=== PATIENT | male | born 1955 | race Caucasian/White ===

== ENCOUNTER 2020-07-15 05:43 | Inpatient (IN) | payer BC, OTHER ==
[~2020-07-15] VITALS: Ht 172.7 cm; Wt 69.9 kg
[2020-07-15] VITALS (40 sets, daily range): BP systolic 45–118; BP diastolic 24–80
--- NOTE | 2020-07-15 05:45 | NUR ---
PT AAOX4. BIBRA C/O GEN ABD PAIN FOR THE PAST 12 HRS. PT STATED HE DID VOMIT X1 TIME. PT PALCED IN BED 7 ON CRIME SCENE SPECIALIST AND PULSE OX. PT TRACH DEP ON 2L. PT HAS A G TUBE AND A GABRIEL. HX OF CHRONIC HYPOTENSION. BP WAS 84/41. MD AT BEDSIDE FOR EVAL.
--- NOTE | 2020-07-15 06:05 | NUR ---
LINE INITIATED LAC 20G, BLOOD WORK COLLECTED, SENT TO LAB.
[2020-07-15] MEDS ORDERED: ONDANSETRON HCL/PF 4 MG/2 ML VIAL ONE (06:08)
--- NOTE | 2020-07-15 06:10 | NUR ---
PT PLACED ON L SIDE DUE TO LOWER BACK PAIN.
[2020-07-15 06:23] LABS: BASOPHILS # (AUTO) 0.2 /CMM (0.0-0.2); BASOPHILS % (AUTO) 0.8 % (0.0-2.0); EOSINOPHILS % (AUTO) 0.5 % (0.0-6.0); HEMATOCRIT 28 % (39-51); HEMOGLOBIN 8.7 g/dL (13.5-17.5); LYMPHOCYTES # (AUTO) 1.2 /CMM (0.8-4.8); LYMPHOCYTES % (AUTO) 6.1 % (20.0-44.0); MEAN CORPUSCULAR HGB CONC 31 g/dl (31.0-36.0); MEAN CORPUSCULAR VOLUME 82 fL (80-96); MONOCYTES # (AUTO) 0.6 /CMM (0.1-1.30); MONOCYTES % (AUTO) 3.2 % (2.0-12.0); NEUTROPHILS # (AUTO) 17.8 /CMM (1.8-8.9); NEUTROPHILS % (AUTO) 89.4 % (43.0-81.0); PLATELET COUNT (AUTO) 440 /CMM (150-450); RED BLOOD CELL COUNT(AUTO) 3.37 MIL/uL (4.5-6.0)
[2020-07-15] MEDS ORDERED: MORPHINE SULFATE INJ 2 MG/ML DISP.SYRIN IV ONE (06:30)
[2020-07-15] MEDS ORDERED: IV NS 0.9% 500 ML BAG IV ONE (06:30)
[2020-07-15] MEDS ORDERED: ONDANSETRON HCL/PF 4 MG/2 ML VIAL IVP ONE (06:30)
--- NOTE | 2020-07-15 06:38 | NUR ---
BROUGHT TO CT
--- NOTE | 2020-07-15 06:56 | NUR ---
pt returned from radiology
--- NOTE | 2020-07-15 07:12 | NUR ---
PT REMAINS HYPOTENSIVE, WILL HOLD MORPHINE.
--- NOTE | 2020-07-15 07:23 | NUR ---
MOVE SHEET TURNED IN.
--- NOTE | 2020-07-15 07:28 | NUR ---
COVID PCR AND ANTIGEN SWAB COLLECTED. URINE COLLECTED. SENT TO LAB.
[2020-07-15 07:30] LABS: CALCIUM, SERUM 9.9 mg/dL (8.5-10.1); CARBON DIOXIDE 31 mmol/L (21-32); CHLORIDE 92 mmol/L (98-107); CREATININE 0.7 mg/dL (0.6-1.3); GLUCOSE 139 mg/dL (74-106); POTASSIUM 4.4 mmol/L (3.5-5.1); SODIUM SERUM 131 mmol/L (136-145); UREA NITROGEN, BLOOD 29 mg/dL (7-18)
[2020-07-15 07:36] LABS: ALANINE AMINOTRANSFERASE 32 U/L (12-78); ALBUMIN 2.4 g/dL (3.4-5.0); ALKALINE PHOSPHATASE 139 U/L (46-116); ASPARTATE AMINOTRANSFERASE 14 U/L (15-37); BILIRUBIN,DIRECT 0.1 mg/dL (0.0-0.2); BILIRUBIN,TOTAL 0.3 mg/dL (0.2-1.0); LIPASE 712 U/L (73-393); TOTAL PROTEIN, SERUM 8.1 g/dL (6.4-8.2)
--- NOTE | 2020-07-15 07:38 | NUR ---
PAGED DR.RENNER MATTHEWS.
--- NOTE | 2020-07-15 07:51 | NUR ---
CALLED [facility] FOR TELE BED
--- NOTE | 2020-07-15 07:58 | NUR ---
PT REQUESTING FOR MORPHINE FOR GENERALIZED PAIN. STILL UNABLE TO GIVE MORPHINE D/T LOW BP, BP IS STILL AT 97/55 HR 95.
--- NOTE | 2020-07-15 08:00 | NUR ---
MORPHINE 4MG ADMINISTERED OVER 3MINUTES. BP PRIOR TO ADMINISTRATION 101/70 HR 91.
[2020-07-15 08:04] LABS: BILIRUBIN,URINE NEGATIVE (NEGATIVE); UGLUCOSE NEGATIVE (NEGATIVE)
[2020-07-15 08:05] LABS: BLOOD, URINE 3+ Ery/uL (NEGATIVE); LEUKOCYTE ESTERASE ,URINE 2+ (NEGATIVE); NITRITE, URINE NEGATIVE (NEGATIVE); PROTEIN,URINE 1+ mg/dl (NEGATIVE); UROBILINOGEN,URINE 0.2 EU/dL (0.2)
[2020-07-15] MEDS ORDERED: MORPHINE SULFATE INJ 4 MG/ML DISP.SYRIN ONE (08:05)
[2020-07-15 08:11] LABS: COLOR,URINE DARK YELLOW (YELLOW)
[2020-07-15 08:26] LABS: BACTERIA,URINE Moderate /HPF (None Seen); RBC,URINE 51-80 /HPF (0-2); SQUAMOUS EPITHELIAL CELL,UR Few /HPF (None Seen); WBC,URINE TOO NUMEROUS TO COUN /HPF (0-3)
[2020-07-15] MEDS ORDERED: ONDANSETRON HCL/PF 4 MG/2 ML VIAL IVP PRN (08:30)
[2020-07-15] MEDS ORDERED: Z GUARD REMEDY 2 OZ OINT TP PRN (08:30)
--- NOTE | 2020-07-15 08:36 | NUR ---
DIDIER () [phone] CALLED, PROVIDEDWIFE WITH UPDATES REGARDING PTS CURRENT CONDITION.
[2020-07-15] MEDS ORDERED: PIPERACILLIN /TAZOBACTAM 3.375 G in IV D5W 50 ML IV ONE (09:00)
[2020-07-15] MEDS ORDERED: VANCOMYCIN 1 GM in IV D5W 250 ML IV ONE (09:00)
--- NOTE | 2020-07-15 09:00 | NUR ---
BP RE-CHECK 102/88 HR 87.
--- NOTE | 2020-07-15 09:23 | NUR ---
bed 204 given
--- NOTE | 2020-07-15 09:30 | NUR ---
CALLED [facility] FOR REPORT, PER NURSE, THEY ARE STILL PREPARING THE ROOM. PT WILL BE GOING TO ROOM 204
[2020-07-15] MEDS ORDERED: ENOXAPARIN SODIUM 40 MG/0.4 ML DISP.SYRIN SQ SCH (09:44)
--- NOTE | 2020-07-15 09:53 | NUR ---
REPORT GIVEN TO ISIDRO FARAH AT [facility] [place] FOR CONTINUITY OF CARE.
[2020-07-15] MEDS ORDERED: IV NS 0.9% 500 ML IV ONE ×2 (10:30→17:00)
[2020-07-15] MEDS: MORPHINE SULFATE INJ 2 MG/ML DISP.SYRIN IV PRN ×2 (11:00→14:55)
[2020-07-15] MEDS: IV D5/0.45 NACL 1,000 ML IV PRN (13:05)
[2020-07-15] MEDS ORDERED: DIATR MEGLU/DIATRIZOATE SODIUM 120 ML BOTTLE (GASTROGRAPHIN) ONE (14:46)
[2020-07-15] MEDS: PIPERACILLIN /TAZOBACTAM 3.375 G in IV D5W 50 ML IV SCH ×2 (14:55→21:42)
--- NOTE | 2020-07-15 17:00 | NUR ---
RN NOTE PATIENT B/P LOW. MD INFORMED. BOLUS 500ML NS INFUSED. B/P ONLY 80/50. TRANSFERRED TO ICU.
[2020-07-15] MEDS: VANCOMYCIN 1.25 GM in IV D5W 250 ML IV SCH (17:19)
--- NOTE | 2020-07-15 18:10 | NUR ---
room 204 -> ICU 254 Patient transferred due to hypotension. Alex APPLIANCE TECHNICIAN aware. Received @1810, attached to monitor, ST HR 117, RR 35, SPO2 96%, 2L O2 via nasal cannula, BP 73/40 on R thigh obtained @1826 Due to tachycardia, order for levo was changed to aman. see IV spreadsheet for accurate pressor times *late scan due to patient instability Patient w/ trach. Upon arrival, patient was verbal, A/Ox4, requesting to be turned. @1845, patient had shallow, slower breaths, paleness, less responsive. respiratory therapy was called -> patient placed on vent @1849, Alex APPLIANCE TECHNICIAN aware. IV sites x3, IVF infusing as ordered, avila catheter draining cloudy yellow urine. PEG attached to suction, drainage = dark brown, ~20mL. accucheck done, CXR & ABG ordered weight per bedscale 125lbs, chart 175lb, clarification endorsed to night SOFI Kolb, pressors started w/ more conservative weight of 125lbs.
[2020-07-15] MEDS: PHENYLEPHRINE 50 MG in IV NS 0.9% 245 ML IV PRN ×2 (18:30→22:46)
[2020-07-15] MEDS ORDERED: NOREPINEPHRINE 8 MG in IV NS 0.9% 242 ML IV PRN (18:30)
[2020-07-15] MEDS: NOREPINEPHRINE 8 MG in IV NS 0.9% 242 ML IV PRN (19:00)
--- NOTE | 2020-07-15 19:45 | NUR ---
RT NOTE LATE ENTRY RT CALLED TO BEDSIDE DUE TO PT SHOWING SIGNS OF RESPIRATORY DISTRESS. PT WAS LETHARGIC AND HAD AGONAL BREATHING. PT ORDERED TO BE PLACED ON MECHANICAL VENT. TRACH CHANGED INITIATED FROM PORTEX 6 CUFFLESS TO PORTEX 6 CUFFED PER JOIST SETTER ORDERS. TRACH IS PATENT AND SECURE. CLEAR BILATERAL BREATH SOUNDS UPON AUSCULTATIONS. MINIMAL BLEEDING NOTED. PT PLACED ON VENT AT 1850 ON ORDERED VENT SETTINGS OF AC18 VT500 100% PEEP+5. ALARMS ARE SET AND AUDIBLE. MECHANICAL VENT PLUGGED INTO RED OUTLET. EMERGENCY EQUIPMENT AT BEDSIDE. WILL CONTINUE TO MONITOR PATIENT.
--- NOTE | 2020-07-15 20:44 | NUR ---
SPOKE TO (DIDIER CARDOSO) AND UPDATED HER ON HER HUSBANDS STATUS. ANSWERED AL QUESTIONS. PROVIDED PHONE NUMBER IN CASE OF ANYTHING.
[2020-07-15 20:53] LABS: ABG BASE EXCESS 0.7 mmol/L; ABG PCO2 37.8 mmHg (35.0-45.0); ABG PH 7.436 (7.350-7.450); ABG PO2 343.3 mmHg (75.0-100.0); AaDO2 331.9 mmHg; COHb 0.3 % (0.5-1.5); MetHb 0.1 % (0.0-1.5); O2Hb 99.6 % (94.0-97.0); SITE, ABG Right Brachial; VENT MODE, BG AC 18 500 100% +5
[2020-07-16] VITALS (54 sets, daily range): BP systolic 68–142; BP diastolic 27–80
[2020-07-16] MEDS: ACETAMINOPHEN 650 MG/SUPP.RECT RC PRN (00:55)
[2020-07-16] MEDS ORDERED: PHENYLEPHRINE 10 MG/ML VIAL ONE (02:03)
[2020-07-16] MEDS ORDERED: NOREPINEPHRINE 4 MG/4 ML AMPUL IV ONE (02:48)
[2020-07-16] MEDS: NOREPINEPHRINE 8 MG in IV NS 0.9% 242 ML IV PRN ×3 (02:57→18:54)
[2020-07-16] MEDS: PIPERACILLIN /TAZOBACTAM 3.375 G in IV D5W 50 ML IV SCH ×2 (03:02→10:11)
[2020-07-16] MEDS: PHENYLEPHRINE 100 MG in IV NS 0.9% 240 ML IV PRN ×3 (03:28→23:15)
[2020-07-16 04:36] LABS: BASOPHILS % (AUTO) 0.1 % (0.0-2.0); EOSINOPHILS % (AUTO) 0.1 % (0.0-6.0); HEMATOCRIT 29 % (39-51); HEMOGLOBIN 8.7 g/dL (13.5-17.5); LYMPHOCYTES # (AUTO) 2.4 /CMM (0.8-4.8); MEAN CORPUSCULAR HGB CONC 30 g/dl (31.0-36.0); MEAN CORPUSCULAR VOLUME 84 fL (80-96); MONOCYTES # (AUTO) 1.3 /CMM (0.1-1.30); MONOCYTES % (AUTO) 3.7 % (2.0-12.0); NEUTROPHILS # (AUTO) 30.3 /CMM (1.8-8.9); NEUTROPHILS % (AUTO) 89.1 % (43.0-81.0); PLATELET COUNT (AUTO) 582 /CMM (150-450); RED BLOOD CELL COUNT(AUTO) 3.43 MIL/uL (4.5-6.0)
[2020-07-16 05:10] LABS: THYROID STIMULATING HORMONE 3.452 uIU/mL (0.358-3.74)
[2020-07-16] MEDS: VANCOMYCIN 1.25 GM in IV D5W 250 ML IV SCH (06:31)
[2020-07-16 06:38] LABS: BAND % (MANUAL) 9 % (0.0-5.0); LYMPHOCYTES % (MANUAL) 7 % (16-48); MONOCYTES % (MANUAL) 11 % (0-11.0); NEUTROPHILS % (MANUAL) 73 (42-76)
[2020-07-16 06:38] LABS: BILIRUBIN,TOTAL 0.5 mg/dL (0.2-1.0); CALCIUM, SERUM 9.5 mg/dL (8.5-10.1); CREATININE 2.1 mg/dL (0.6-1.3); MAGNESIUM 2.9 mg/dL (1.8-2.4); PHOSPHORUS 7.4 mg/dL (2.5-4.9); POTASSIUM 5.6 mmol/L (3.5-5.1); TOTAL PROTEIN, SERUM 7.4 g/dL (6.4-8.2)
--- NOTE | 2020-07-16 07:00 | NUR ---
CARTRIDGE FILLER PATIENT ALERT PATIENT UNABLE TO ANSWER QUESTIONS BUT ABLE TO ANSWER YES AND NO QUESTIONS. PATIENT IS AWARE OF SURROUNDING . PATIENT IS IN BED AWAKE AND ABLE TO FOLLOW. PATIENT ON SNOW GROOMER ST 115 SR. PATIENT WITH TRACH WITH CURRENT VENT SETTINGS PER ORDERS . PATIENT GTUBE AND CURRENT NPO. PATIENT GTUBE @ SITE HAS SMALL TRACES OF BLOOD. . PATIENT HAS SACRAL REDNESS. AND MEDIAL ABDOMEN WITH PUS. ABDOMEN IS DISTENDED. PATIENT HAS ELAIEN MID LINE WITH LEVO 0.3 , VEL 3.0 MAX OUT . D51/2NS @ 75ML/HR. BED LOCK LOWEST POSITION CALL LIGHT WITH IN REACH ALL SAFETY MEASURE IMPLEMENTED PER HOSPOITAL POLICY
[2020-07-16] MEDS: IV D5/0.45 NACL 1,000 ML IV PRN (07:16)
[2020-07-16] MEDS: IV NS 0.9% 1,000 ML IV PRN ×2 (08:44→13:13)
[2020-07-16 09:17] LABS: THYROID STIMULATING HORMONE 4.489 uIU/mL (0.358-3.74)
[2020-07-16] MEDS: HYDROCORTISONE SOD SUCCINATE 100 MG/2 ML VIAL IV SCH ×3 (10:10→20:34)
[2020-07-16] MEDS ORDERED: SODIUM POLYSTYRENE SULFONATE 15 G/60 ML BOTTLE RC ONE (10:30)
[2020-07-16] MEDS ORDERED: Sodium Bicarbonate 100 MEQ in IV D5/0.45 NACL 1,000 ML IV PRN (10:30)
[2020-07-16] MEDS ORDERED: FUROSEMIDE 40 MG/4 ML VIAL IV ONE (10:30)
[2020-07-16] MEDS ORDERED: FLUCONAZOLE IN NS 100 MG in PREMIX 1 EA IV SCH ×2 (12:00)
[2020-07-16] MEDS ORDERED: MEROPENEM 1 G in IV NS 0.9% 100 ML IV SCH (13:00)
[2020-07-16] MEDS ORDERED: MIDAZOLAM HCL 2 MG/2ML VIAL ONE (13:02)
[2020-07-16] MEDS ORDERED: FENTANYL PF 250MCG/5ML AMPUL ONE (13:03)
[2020-07-16] MEDS ORDERED: HYDROMORPHONE INJ 2 MG/ML DISP.SYRIN ONE (13:03)
[2020-07-16] MEDS ORDERED: FAMOTIDINE/PF INJ 20 MG/2 ML VIAL IV ONE (13:04)
[2020-07-16] MEDS ORDERED: ROCURONIUM BROMIDE 50 MG/5 ML ONE (13:05)
[2020-07-16] MEDS ORDERED: DEXAMETHASONE SOD PHOSPHATE 10 MG/ML VIAL ONE (13:06)
[2020-07-16] MEDS ORDERED: METRONIDAZOLE 500MG/ NS 100ML 100 ML IV ONE (14:03)
[2020-07-16] MEDS ORDERED: ASPI-1169 PO (14:31)
[2020-07-16] MEDS ORDERED: MIDO10TA PO (14:31)
[2020-07-16] MEDS ORDERED: ONDA4TAB11 PO (14:31)
[2020-07-16] MEDS ORDERED: APIX5TAB4 PO (14:31)
[2020-07-16] MEDS ORDERED: TRAZ300T2 PO (14:31)
[2020-07-16] MEDS ORDERED: GABA-532 PO (14:31)
[2020-07-16] MEDS ORDERED: FLUO20CA42 PO (14:31)
--- NOTE | 2020-07-16 15:00 | NUR ---
DRAWING IN MACHINE TENDER HELPER PATIENT BACK FORM SURGERY EXPLORATORY LAPARECTOMY WITH POSSIBLE RESECTION
[2020-07-16] MEDS ORDERED: MORPHINE SULFATE INJ 4 MG/ML DISP.SYRIN IV PRN (17:30)
[2020-07-16] MEDS: METOCLOPRAMIDE HCL 10 MG/2 ML VIAL IV SCH ×2 (17:48→23:56)
[2020-07-16] MEDS: METRONIDAZOLE 500MG/ NS 100ML 500 MG in PREMIX 1 EA IV SCH (17:48)
[2020-07-16] MEDS: IV D5/0.45 NACL W/20 MEQ KCL 1L IV PRN ×2 (17:54)
[2020-07-16 18:17] LABS: CALCIUM, SERUM 7.3 mg/dL (8.5-10.1)
--- NOTE | 2020-07-16 19:00 | NUR ---
received patient in no acute distress in bed. patient is a/o x 1 and able to make needs known by nodding yes or no. patient is on mechanical vent via trach. Patient has right ng tube that is clean dry intact and patent on low intermittent suction with brown gastric content in suction container. Patient also has GT that is clamped. Patient has low temp of 94.1 and heating measures initiated with sriram vitale. Patient has right upper arm tlc picc line that is clean dry intact with aman @ 3 mcg, levo @ 0.12 mcg, sodium bicard 1 amp @ 50ml/hr, D51/2 ns with potassium chloride @ 150ml/hr. bed in low lock position with rials up x 2. call light within reach and all safety measures ensured and carried out. will continue to monitor.
--- NOTE | 2020-07-16 19:23 | NUR ---
BONE CRUSHER PATIENT A/OX 1 PATIENT IS LETHARGIC. PATIENT ABLE TO OPEN EYES PATIENT IS TRACH . AFTER SURGERY HE IS NOT ALERT BEFORE .PATIENT ON EXTERNAL MONITOR WITH ST 100'S . PATIENT ON VENT SETTING PER ORDERS. WITH P 6 AC 18 TV 500, FI02 40 PEEP 5. PATIENT HAS SACRAL REDNESS AND MEDICAL ABDOMINAL SX SITE. PATIENT IS NPO AT THIS TIME . WITH A L NG TUBE PLACE WITH LOW INTERMITENT SUCTIONING. EARLIER IN THE AM. OUTPUT FROM PEG WAS 700ML/HR . PATIENT HAS ELAINE MID LINE PATENT AND INTACT. SHITAL PICC LINE WITH LEVO 0.12 MCG/KG AND VEL 3.0 MCG/KG . PATIENT HAD NO FEVER TODAY. BED LOCKED LOWEST POSITION CALL LIGHT WITH IN REACH ALL SAFETY MEAUSRE IMPLEMENTED PER HOSPITAL POLICY PER TO CANCEL ALL FLUID AND ANTIBIOTICS AND FOLLOW DR NINO ORDERS. ENDORSED TO PM SHIFT NURSE ENDORSED TO PM SHIFT NURSE
[2020-07-16] MEDS: PANTOPRAZOLE 40 MG VIAL IV SCH (20:34)
[2020-07-16] MEDS: MORPHINE SULFATE INJ 2 MG/ML DISP.SYRIN IV PRN (20:35)
--- NOTE | 2020-07-16 21:58 | NUR ---
RECEIVED PT ON VENT TRACH PTX 6. NO RESP DISTRESS NOTED. PT TOLERATING VENT SETTINGS. SX'D SML AMT OF THICK WHITE SECRETIONS. VENT ALARMS SET AND AUDIBLE. WILL CONTINUE TO MONITOR. Addendum: 07/16/20 at 2159 by LISA SHAW RT Amended: Links added.
[2020-07-16] MEDS: ANCEF 1 GM/50 ML D5W IV SCH ×2 (22:50)
[2020-07-17] VITALS (105 sets, daily range): BP systolic 72–188; BP diastolic 23–101
[2020-07-17] MEDS: IV D5/0.45 NACL W/20 MEQ KCL 1L IV PRN ×2 (02:31)
[2020-07-17] MEDS: METRONIDAZOLE 500MG/ NS 100ML 500 MG in PREMIX 1 EA IV SCH ×2 (02:38→10:17)
[2020-07-17] MEDS: MORPHINE SULFATE INJ 2 MG/ML DISP.SYRIN IV PRN (03:18)
[2020-07-17] MEDS: MORPHINE SULFATE INJ 4 MG/ML DISP.SYRIN IV PRN (04:46)
[2020-07-17] MEDS ORDERED: MEROPENEM 1 G in IV NS 0.9% 100 ML IV ONE (05:00)
[2020-07-17] MEDS: NOREPINEPHRINE 8 MG in IV NS 0.9% 242 ML IV PRN ×3 (05:08→20:05)
[2020-07-17] MEDS: METOCLOPRAMIDE HCL 10 MG/2 ML VIAL IV SCH ×3 (05:15→17:55)
[2020-07-17] MEDS: HYDROCORTISONE SOD SUCCINATE 100 MG/2 ML VIAL IV SCH ×3 (05:15→23:11)
--- NOTE | 2020-07-17 05:15 | NUR ---
Rufus patient per midline with abnormal labs and requested a redraw by straight stick instead of through MIDLINE. 0520-Toll Line Mechanic Pasquale is in room attempted to draw patient. 0543- cotton expert was successful in obtaining blood via straight stick. awaiting results.
[2020-07-17 05:49] LABS: BASOPHILS # (AUTO) 0.1 /CMM (0.0-0.2); BASOPHILS % (AUTO) 0.3 % (0.0-2.0); EOSINOPHILS % (AUTO) 0.2 % (0.0-6.0); LYMPHOCYTES # (AUTO) 1.3 /CMM (0.8-4.8); LYMPHOCYTES % (AUTO) 4.2 % (20.0-44.0); MEAN CORPUSCULAR HGB CONC 27 g/dl (31.0-36.0); MEAN CORPUSCULAR VOLUME 96 fL (80-96); MONOCYTES # (AUTO) 1.8 /CMM (0.1-1.30); MONOCYTES % (AUTO) 5.7 % (2.0-12.0); NEUTROPHILS # (AUTO) 28.1 /CMM (1.8-8.9); NEUTROPHILS % (AUTO) 89.6 % (43.0-81.0); PLATELET COUNT (AUTO) 413 /CMM (150-450)
[2020-07-17 05:53] LABS: HEMOGLOBIN 4.8 g/dL (13.5-17.5); RED BLOOD CELL COUNT(AUTO) 1.89 MIL/uL (4.5-6.0); WHITE BLOOD COUNT (AUTO) 31.3 K/uL (4.3-11.0)
[2020-07-17 05:54] LABS: HEMATOCRIT 18 % (39-51)
[2020-07-17] MEDS ORDERED: VANCOMYCIN 1.25 GM in IV D5W 250 ML IV SCH (06:00)
--- NOTE | 2020-07-17 06:00 | NUR ---
Notified Dr. Parra of critical lab value HGB- 4.8 and received orders to give 2 units PRBC. Read back orders performed and carried out. Orders placed and awaiting Blood product to be prepared.
[2020-07-17] MEDS: ANCEF 1 GM/50 ML D5W IV SCH ×4 (06:13→14:14)
[2020-07-17 06:16] LABS: BILIRUBIN,TOTAL 0.5 mg/dL (0.2-1.0); CALCIUM, SERUM 7.9 mg/dL (8.5-10.1); CREATININE 2.4 mg/dL (0.6-1.3); MAGNESIUM 3.1 mg/dL (1.8-2.4); TOTAL PROTEIN, SERUM 5.3 g/dL (6.4-8.2)
[2020-07-17 06:19] LABS: PHOSPHORUS 10.3 mg/dL (2.5-4.9); POTASSIUM 7.9 mmol/L (3.5-5.1)
[2020-07-17 06:20] LABS: ALBUMIN 1.4 g/dL (3.4-5.0)
[2020-07-17 06:33] LABS: BAND % (MANUAL) 20 % (0.0-5.0); LYMPHOCYTES % (MANUAL) 5 % (16-48); METAMYELOCYTES % 4 % (0-0); MONOCYTES % (MANUAL) 6 % (0-11.0); MYELOCYTES % 3 % (0-0); NEUTROPHILS % (MANUAL) 62 (42-76)
--- NOTE | 2020-07-17 06:50 | NUR ---
NOTIFIED DR. LUCERO OF CRITICAL LAB VALUE OF: POTASSIUM- 7.9 PHOS- 10.3 ALBUMIN- 1.4 PROCAL- 39.96 RECIEVED ORDERS TO GIVE D50 1 AMP FOLLOWED BY 10 UNITS OF INSULIN IV STAT ABG D/C ALL FLUIDS AND START PATIENT ON D5NS @ 100ML/HR. PATIENT NEEDS CT ABDOMEN/ PELVIS WITHOUT CONTRAST, BUT NOT LIKELY STABLE FOR CT NOW.
[2020-07-17] MEDS ORDERED: DEXTROSE 50%-WATER 50 ML DISP.SYRIN IVP ONE (07:00)
[2020-07-17] MEDS ORDERED: INSULIN REGULAR, HUMAN 100 UNIT/ML 3 ML VIAL IV ONE (07:00)
[2020-07-17] MEDS ORDERED: IV D5/ 0.9% NACL 1,000 ML IV PRN (07:00)
[2020-07-17] MEDS: PHENYLEPHRINE 100 MG in IV NS 0.9% 240 ML IV PRN ×2 (07:04→15:28)
[2020-07-17 07:16] LABS: ABG BASE EXCESS -17.9 mmol/L; ABG OXYGEN SATURATION 91.3 % (92.0-98.5); ABG PCO2 33.9 mmHg (35.0-45.0); ABG PO2 84.6 mmHg (75.0-100.0); AaDO2 161.6 mmHg; COHb 0.7 % (0.5-1.5); MetHb 0.6 % (0.0-1.5); O2Hb 90.1 % (94.0-97.0); PEEP,BG 5 cm H2O; SITE, ABG Right Radial; VT, ABG 500 mL
--- NOTE | 2020-07-17 07:45 | NUR ---
Patient remains in critical condition with 1 unit PRBC infusing with a 2nd waiting in blood bank. patient continues to be on aman and levo for hemodynamic stability. patient continues on mechanical ventilator via trach and tolerating well. patient is sleeping but easily aroused by voice. all iv sites are clean dry intact and patent. all needs met, all orders carried out. Endorsed care to AM RN for continuity of care.
[2020-07-17] MEDS: FLUCONAZOLE IN NS 100 MG in PREMIX 1 EA IV SCH ×2 (07:51)
--- NOTE | 2020-07-17 07:57 | NUR ---
WOUND CARE CONSULT: PT NOT TURNED YET FOR SKIN ASSESSMENT DUE TO PT RECEIVING BLOOD TRANSFUSION AT THIS TIME. RECOMMENDATIONS MADE FOR SKIN PROTECTION. DISCUSSED WITH NURSING STAFF. WILL SEE PT PT CONDITION PERMITS. FIRST STEP LOW AIRLOSS MATTRESS IS ON ORDER.
--- NOTE | 2020-07-17 08:10 | NUR ---
1st unit FFP transfusion started.
[2020-07-17] MEDS ORDERED: SODIUM BICARBONATE SYR 50 MEQ/50 ML DISP.SYRIN IV ONE (08:30)
[2020-07-17] MEDS: GABAPENTIN 300 MG CAPSULE PO SCH ×2 (09:00→17:00)
[2020-07-17] MEDS ORDERED: ASPIRIN 81 MG TAB.CHEW PO SCH (09:00)
[2020-07-17] MEDS: FLUOXETINE HCL 20 MG CAPSULE PO SCH (09:00)
[2020-07-17] MEDS ORDERED: APIXABAN 5 MG TABLET PO SCH (09:00)
[2020-07-17] MEDS: Sodium Bicarbonate 150 MEQ in IV D5W 1,000 ML IV PRN ×2 (09:23→20:41)
--- NOTE | 2020-07-17 09:43 | NUR ---
WOUND CARE: PT SEEN FOR SKIN ASSESSMENT AND NOTED TO HAVE INTACT SACRAL DEEP TISSUE INJURY PRESENT ON ADMISSION. RECOMMENDATIONS MADE FOR SKIN PROTECTION AND WOUND CARE. DISCUSSED WITH NURSING STAFF. THERE IS DISCOLORATION TO PENIS ALSO. RN TO DISCUSS WITH . IN AGREEMENT WITH PLAN OF CARE.
--- NOTE | 2020-07-17 09:56 | NUR ---
RT PER DR ENNIS RR INCREASED TO 28. VENT ALARMS CHECKED + AUDIBLE. AMBU BAG AT HOB Addendum: 07/17/20 at 0957 by CHANG CHOWDHURY RT Amended: Links added.
[2020-07-17 10:02] LABS: FERRITIN 14226 ng/mL (8-388)
[2020-07-17] MEDS: PANTOPRAZOLE 40 MG VIAL IV SCH ×2 (10:17→23:10)
[2020-07-17 10:19] LABS: IRON, SERUM 118 ug/dl (50-175); TOTAL IRON BINDING CAPACITY 118 ug/dl (250-450)
[2020-07-17 11:36] LABS: EOSINOPHILS % (AUTO) 0.3 % (0.0-6.0); HEMATOCRIT 24 % (39-51); LYMPHOCYTES # (AUTO) 11.5 /CMM (0.8-4.8); LYMPHOCYTES % (AUTO) 45.1 % (20.0-44.0); MEAN CORPUSCULAR HGB CONC 32 g/dl (31.0-36.0); MEAN CORPUSCULAR VOLUME 86 fL (80-96); MONOCYTES # (AUTO) 5.4 /CMM (0.1-1.30); NEUTROPHILS # (AUTO) 8.6 /CMM (1.8-8.9); NEUTROPHILS % (AUTO) 33.6 % (43.0-81.0); PLATELET COUNT (AUTO) 242 /CMM (150-450); RED BLOOD CELL COUNT(AUTO) 2.79 MIL/uL (4.5-6.0); WHITE BLOOD COUNT (AUTO) 25.5 K/uL (4.3-11.0)
[2020-07-17 11:41] LABS: HEMOGLOBIN 7.7 g/dL (13.5-17.5)
[2020-07-17 12:01] LABS: CALCIUM, SERUM 6.8 mg/dL (8.5-10.1); CARBON DIOXIDE 18 mmol/L (21-32); CHLORIDE 103 mmol/L (98-107); CREATININE 2.5 mg/dL (0.6-1.3); GLUCOSE 140 mg/dL (74-106); POTASSIUM 5.9 mmol/L (3.5-5.1); SODIUM SERUM 140 mmol/L (136-145); UREA NITROGEN, BLOOD 66 mg/dL (7-18)
[2020-07-17 12:19] LABS: ALKALINE PHOSPHATASE 147 U/L (46-116)
[2020-07-17 12:22] LABS: ABG BASE EXCESS -5.2 mmol/L; ABG OXYGEN SATURATION 95.7 % (92.0-98.5); ABG PCO2 27.9 mmHg (35.0-45.0); ABG PH 7.433 (7.350-7.450); ABG PO2 80.2 mmHg (75.0-100.0); AaDO2 172.9 mmHg; COHb 0.4 % (0.5-1.5); MetHb 0.3 % (0.0-1.5); SITE, ABG Right Radial
--- NOTE | 2020-07-17 12:41 | NUR ---
DR. MON, AND DR. COLBERT NOTIFIED OF CURRENT LABS, HGB 7.7, HCT 24, NA 140, K+ 5.9. BOTH ALSO NOTIFIED THAT PATIENT IS BACK IN SINUS TACH. ORDERS GIVEN FROM DR. MON TO TRANSFUSE 1 MORE UNIT OF PRBCS. DR. ENNIS NOTIFIED OF CURRENT ABG. ORDER TO CHANGE VENT RATE TO 20.
[2020-07-17 14:43] LABS: BILIRUBIN,TOTAL 0.9 mg/dL (0.2-1.0); TOTAL PROTEIN, SERUM 4.7 g/dL (6.4-8.2)
[2020-07-17 14:50] LABS: ALBUMIN 1.2 g/dL (3.4-5.0)
[2020-07-17 15:08] LABS: BILIRUBIN,DIRECT 0.6 mg/dL (0.0-0.2)
[2020-07-17 15:14] LABS: CALCIUM, SERUM 6.6 mg/dL (8.5-10.1); CREATININE 2.5 mg/dL (0.6-1.3)
[2020-07-17 16:09] LABS: POTASSIUM 6.8 mmol/L (3.5-5.1)
--- NOTE | 2020-07-17 16:23 | NUR ---
DR. MCDONALD, ELIESER HOGAN AND FILEMON NOTIFIED OF CURRENT POTASSIUM OF 6.8 AND LACTIC ACID OF 7.3. NO ORDERS GIVEN OF THIS TIME.
[2020-07-17 16:39] LABS: ALANINE AMINOTRANSFERASE 8538 U/L (12-78); ASPARTATE AMINOTRANSFERASE 16592 U/L (15-37)
--- NOTE | 2020-07-17 16:43 | NUR ---
DR. CONSTANTINO NOTIFIED OF TROPONIN OF 0.737, NO ORDERS GIVEN AT THIS TIME.
[2020-07-17 16:47] LABS: HEMOGLOBIN 8.7 g/dL (13.5-17.5)
--- NOTE | 2020-07-17 16:53 | NUR ---
VIRA AMES, EDISON, TAMARA AND FILEMON NOTIFIED THAT HGB IS CURRENTLY 8.7 AFTER 3 UNITS OF PRBCS, NO ORDERS GIVEN AT THIS TIME
[2020-07-17 17:23] LABS: D-DIMER 35.2 mg/L(FEU (0.17-0.50)
--- NOTE | 2020-07-17 17:28 | NUR ---
VIRA AMES, EDISON, TAMARA AND FILEMON NOTIFIED OF PT 42.7, INR 4.28, PTT 55, FIBRINOGEN 352, D-DIMER 35.2. ORDER GIVEN BY DR. HOGAN FOR VITAMIN K AND 2 UNITS OF FFP.
[2020-07-17] MEDS: MEROPENEM 1 G in IV NS 0.9% 100 ML IV SCH (17:55)
[2020-07-17] MEDS ORDERED: PHYTONADIONE INJ 10 MG/1 ML AMPUL SQ SCH (18:00)
--- NOTE | 2020-07-17 19:00 | NUR ---
Received report from RN,MD Dr. Blake at bedside for HD catheter insertion in progress. Patient with trache to the ventilator on AC mode,awake,alert,seem to understand and coherent ,nods in agreement but unable to move any extremities( slight withdrawal to pain and noted some slight shakiness of arms)patient with HX Guillain-Erie.,not in any distress,breathing regular and non labored. On Neosynephrine drip and Levophed drip for BP support,on NAHCHO3 drip @ 100 ml/hr. PICC line @ SHITAL, MIDLINE @ ELAINE, HD cath being inserted via right femoral. NGT to KELLE, has G tube clamped at this time. Noted Mid abdominal surgical incision (S/P Explor Lap /SBR 07/16/20),dressing dry and intact ,no S/S of bleeding . Brandt cath with minimal output but hematuric( bright red ). Patient foe emergency hemodialysis tonight , for 2 units FFP transfusion once blood product available. Addendum: 07/18/20 at 0801 by YEYO CARLOS RN Correction on MD name , Dr. Souza (not Hayden ) inserted dialysis catheter.
--- NOTE | 2020-07-17 19:30 | NUR ---
END OF SHIFT NOTE: SEE PREVIOUS NOTES FOR MD NOTIFICATIONS. 3 UNITS OF PRBC'S GIVEN THIS SHIFT. VIT K GIVEN PER SHIFT PER MD ORDERS. VEL-SYNEPHRINE INFUSING PER MD ORDERS AT 3MCG/KG/MIN, LEVOPHED INFUSING PER MD ORDERS, CURRENTLY AT 0.1 MCG/KG/MIN. D5W 150MEQ NA BICARB AT 100ML/HR PER MD ORDERS. RIGHT FEMORAL DIALYSIS CATHETER INSERTED AT THIS TIME BY DR. CORONADO. DIALYSIS CONSENT ON CHART. PENDING 2 UNITS OF FFP, ENDORSED TO THANG FARAH FOR NEXT SHIFT ADMINISTRATION. PT CHECKED ON HOURLY AND PRN BY NURSING STAFF.
--- NOTE | 2020-07-17 21:00 | NUR ---
FFP transfusion over, tolerated well, no transfusion reaction.
--- NOTE | 2020-07-17 21:00 | NUR ---
Hemodialysis started.Patient was made aware,patient continues to be alert and seems to understand well.
--- NOTE | 2020-07-17 21:05 | NUR ---
Unable to give 2100 meds (Protonix,Solucortef) HD in progress as per HD nurse this meds are dialysable.Will give post dialysis.
--- NOTE | 2020-07-17 21:30 | NUR ---
Followed up 2nd unit of FFP from blood bank, not yet ready,states they will call once ready.
--- NOTE | 2020-07-17 22:00 | NUR ---
FFP not yet ready as per blood bank.
--- NOTE | 2020-07-17 23:00 | NUR ---
Hemodialysis finished (lasted 2 hrs.) as per HN nurse pulled only 500 ml of fluid.Patient tolerated HD well, .BP remained stable,no S/S of any profuse bleeding from HD site( there was slight blood stain from the dressing post insertion )
--- NOTE | 2020-07-17 23:35 | NUR ---
2nd unit FFP started.
[2020-07-18] VITALS (105 sets, daily range): BP systolic 90–181; BP diastolic 42–97
--- NOTE | 2020-07-18 | NUR ---
Neuro status unchanged,,asleep but easily awakens,alert,still communicating well, seems to understand,just unable to move .Noted small amount of bleeding from the HD cath site.but no other S/S of external bleed anywhere( incission site,G tube site nor nGT drainage, no bleeding).
[2020-07-18] MEDS: PHENYLEPHRINE 100 MG in IV NS 0.9% 240 ML IV PRN (00:08)
[2020-07-18] MEDS: METOCLOPRAMIDE HCL 10 MG/2 ML VIAL IV SCH ×5 (00:13→22:44)
--- NOTE | 2020-07-18 01:00 | NUR ---
Noted new profuse bleeding coming from the dialysis catheter site. still no other sign of bleeding anywhere .NGT drainage remains greenish, incision site remains dry,no bleeding ,intact dressing. AM care done.
--- NOTE | 2020-07-18 02:00 | NUR ---
STAT CBC done.
[2020-07-18 02:24] LABS: BASOPHILS % (AUTO) 0.1 % (0.0-2.0); EOSINOPHILS % (AUTO) 1.7 % (0.0-6.0); HEMATOCRIT 25 % (39-51); HEMOGLOBIN 7.9 g/dL (13.5-17.5); LYMPHOCYTES # (AUTO) 0.5 /CMM (0.8-4.8); LYMPHOCYTES % (AUTO) 2.2 % (20.0-44.0); MEAN CORPUSCULAR HGB CONC 32 g/dl (31.0-36.0); MEAN CORPUSCULAR VOLUME 85 fL (80-96); MONOCYTES # (AUTO) 0.4 /CMM (0.1-1.30); MONOCYTES % (AUTO) 1.8 % (2.0-12.0); NEUTROPHILS # (AUTO) 21.6 /CMM (1.8-8.9); NEUTROPHILS % (AUTO) 94.2 % (43.0-81.0); PLATELET COUNT (AUTO) 154 /CMM (150-450)
--- NOTE | 2020-07-18 02:30 | NUR ---
HGB=7.9
--- NOTE | 2020-07-18 04:00 | NUR ---
Hypothermic TEMP=96.6. ANNIA HUGGER warmer turned on .Patient remains awake,alert, HD cath site still bleeding. Will repeat CBC in am .
[2020-07-18] MEDS: MEROPENEM 1 G in IV NS 0.9% 100 ML IV SCH ×2 (04:28→18:20)
[2020-07-18] MEDS: HYDROCORTISONE SOD SUCCINATE 100 MG/2 ML VIAL IV SCH ×3 (04:28→20:28)
--- NOTE | 2020-07-18 06:00 | NUR ---
Temp=99.7 ,ANNIA CHILEL warmer turn off for now.
[2020-07-18 06:14] LABS: BASOPHILS # (AUTO) 0.1 /CMM (0.0-0.2); BASOPHILS % (AUTO) 0.6 % (0.0-2.0); EOSINOPHILS % (AUTO) 1.5 % (0.0-6.0); LYMPHOCYTES # (AUTO) 0.8 /CMM (0.8-4.8); LYMPHOCYTES % (AUTO) 3.4 % (20.0-44.0); MEAN CORPUSCULAR HGB CONC 33 g/dl (31.0-36.0); MEAN CORPUSCULAR VOLUME 85 fL (80-96); MONOCYTES # (AUTO) 0.4 /CMM (0.1-1.30); MONOCYTES % (AUTO) 1.8 % (2.0-12.0); NEUTROPHILS # (AUTO) 21.4 /CMM (1.8-8.9); NEUTROPHILS % (AUTO) 92.7 % (43.0-81.0); PLATELET COUNT (AUTO) 135 /CMM (150-450); RED BLOOD CELL COUNT(AUTO) 2.29 MIL/uL (4.5-6.0); WHITE BLOOD COUNT (AUTO) 23.1 K/uL (4.3-11.0)
[2020-07-18 06:36] LABS: D-DIMER > 35.20 mg/L(FEU (0.17-0.50); PLATELET COUNT (AUTO) 154 /CMM (150-450)
[2020-07-18] MEDS: FLUCONAZOLE IN NS 100 MG in PREMIX 1 EA IV SCH ×2 (06:38)
[2020-07-18 06:46] LABS: ALBUMIN 1.5 g/dL (3.4-5.0); BILIRUBIN,TOTAL 1.2 mg/dL (0.2-1.0); CALCIUM, SERUM 6.6 mg/dL (8.5-10.1); MAGNESIUM 2.2 mg/dL (1.8-2.4); PHOSPHORUS 5.2 mg/dL (2.5-4.9); TOTAL PROTEIN, SERUM 4.5 g/dL (6.4-8.2)
--- NOTE | 2020-07-18 06:48 | NUR ---
Remains awake,alert, BP more stable now only on low dose (0.4 mcg/kg/min ) of Neosynephrine drip, off Levophed drip.CBC and other blood works drawn ,pending results.
--- NOTE | 2020-07-18 07:00 | NUR ---
PT=25.8, INR-2.5 , PTT -48 , Fibrinogen =360 . Hgb still pending. dialysis catheter site still bleeding, urine still hematuric, but ogt drainage (-) fof bloody drainage. Still on Neosynephrine but low dose .BPS > 90 .Remains awake,alert, not in any distress.
[2020-07-18 07:24] LABS: HEMATOCRIT 19 % (39-51); HEMOGLOBIN 6.5 g/dL (13.5-17.5)
--- NOTE | 2020-07-18 07:30 | NUR ---
START OF SHIFT NOTE: RECEIVED REPORT FROM THANG. PER REPORT AND NURSING NOTE PT HAD DIALYSIS LAST NIGHT, ENDING AT 2300, 400ML OUT. LEVOPHED TITRATED OFF OVERNIGHT, VEL-SYNEPHRINE INFUSING AT 0.4 MCG/KG/MIN, D5W 150MEQ NA BICARB INFUSING AT 100ML/HR. ALL DRIPS VERIFIED ON PUMP AND INFUSING REPORTED. PT AWAKE, ABLE TO ANSWER SIMPLE YES AND NO QUESTIONS. RIGHT FEMORAL DIALYSIS CATHETER IS BLOODY AT THE SITE WITH SCANT AMOUNT DRAINING FROM SITE, DRESSING NOT CHANGED IN ORDER FOR CLOTTING TO TAKE EFFECT D/T PT BEING IN DIC, WILL CONTINUE TO MONITOR. NO BLEEDING FROM PENIS NOTED AT THIS TIME ALTHOUGH URINE IS SAM IN COLOR. NO BLEEDING NOTED FROM NG OR RECTUM AT THIS TIME. PT TO BE CHECKED ON HOURLY AND PRN BY NURSING STAFF.
--- NOTE | 2020-07-18 08:06 | NUR ---
DR. HOGAN NOTIFIED OF HGB OF 6.5, PT 25.8/INR 2.52, PTT 48.4, D-DIMER >35.2, FIBRINOGEN 360. ORDERS GIVEN FOR 1 UNIT PRBCS AND [address] MON AND DR. COLBERT ALSO NOTIFIED.
[2020-07-18] MEDS: FLUOXETINE HCL 20 MG CAPSULE PO SCH (09:00)
[2020-07-18] MEDS: GABAPENTIN 300 MG CAPSULE PO SCH ×2 (09:00→17:00)
[2020-07-18] MEDS: Sodium Bicarbonate 150 MEQ in IV D5W 1,000 ML IV PRN (09:43)
--- NOTE | 2020-07-18 10:04 | NUR ---
DR. CONSTANTINO NOTIFIED OF CKMB OF 18.9 AND TROPONIN OF 0.637, NO ORDERS GIVEN AT THIS TIME
[2020-07-18] MEDS: PANTOPRAZOLE 40 MG VIAL IV SCH ×2 (10:08→20:28)
[2020-07-18 10:26] LABS: BAND % (MANUAL) 8 % (0.0-5.0); LYMPHOCYTES % (MANUAL) 2 % (16-48); MONOCYTES % (MANUAL) 1 % (0-11.0); MYELOCYTES % 1 % (0-0); NEUTROPHILS % (MANUAL) 88 (42-76)
[2020-07-18 12:29] LABS: HEMOGLOBIN 6.5 g/dL (13.5-17.5)
--- NOTE | 2020-07-18 12:33 | NUR ---
DR. HOGAN NOTIFIED OF HGB 6.5, HCT 20 2 HOURS AFTER 1 UNIT PRBC'S. 1 UNIT OF FFP HAS FINISHED, 2ND UNIT INFUSING AT THIS TIME. AWAITING RESPONSE Addendum: 07/18/20 at 1245 by JAYRO LANGFORD RN DR. MON AND DR. COLBERT ALSO NOTIFIED. NO ORDERS GIVEN AT THIS TIME
--- NOTE | 2020-07-18 13:27 | NUR ---
DR. HOGAN, TAMARA AND FILEMON NOTIFIED THAT PT IS OOZING BLOOD FROM AROUND DIALYSIS CATHETER, PRESSURE HELD, DRESSING CHANGED, CONTINUES TO OOZE. NO ORDERS GIVEN AT THIS TIME. WILLL CONTINUE TO MONITOR.
[2020-07-18 16:40] LABS: BILIRUBIN,DIRECT 0.7 mg/dL (0.0-0.2); BILIRUBIN,TOTAL 1.2 mg/dL (0.2-1.0)
--- NOTE | 2020-07-18 19:23 | NUR ---
END OF SHIFT NOTE: PT HAD A BUSY DAY. RIGHT FEMORAL DIALYSIS CATHETER OOZED BLOOD MOST OF THE DAY DESPITE ATTEMPTS TO HOLD PRESSURE AND PRESSURE BANDAGE. AT 1700 RN WAS ABLE TO SECURE AND PRESSURE BANDAGE THAT HAS STOPPED THE OOZING, WILL ENDORSE TO NEXT SHIFT. PT RECEIVED 2 UNITS PRBC'S AND 2 UNITS FFPS THIS SHIFT. PENDING 2 UNITS FFP, WILL ENDORSE TO NEXT SHIFT. SEE PREVIOUS NOTES REGARDING MD NOTIFICATIONS. PT IS CURRENTLY INFUSING VEL-SYNEPHRINE AT 0.3 MCG/KG/HR PER MD ORDERS. IVF WERE DC'D TODAY. PT HAD DIALYSIS TODAY, NO AMOUNT REMOVED. FIRST STEP OVERLAY MATTRESS PUT ON BED THIS SHIFT. BM X1 THIS SHIFT, NO BLOOD NOTED IN STOOL. PT CHECKED ON HOURLY AND PRN BY NURSING STAFF.
--- NOTE | 2020-07-18 19:30 | NUR ---
RN NOTE RECEIVED PT IN BED IN SEMI BA'S POSITION. WITH TRACH CONNECTED TO VENT AND TOELRATING SETTINGS WELL. TRACH MIDLINE AND IN PLACE, RESPIRATIONS EVEN AND UNLABORED, VITAL SIGNS STABLE VIA BED SIDE MONITOR. SR ON THE TELE MONITOR. NO INDICATIONS OF PAIN OR DISCOMFORT. NPO STATUS. NGT CONNECTED TO LOW INTERMITTENT SUCTION WITH LIGHT GREEN/BROWN DRAINAGE GABRIEL CATHETER PATENT AND IN PLACE DRAINING PINK TINGED URINE. FEMORAL HD CATHETER INTACT WITHOUT BLEEDING NOTED. ALL LINES FLUSHED AND PATENT WITHOUT COMPLICATIONS AT SITE. PENDING 2 UNITS OF FFP AND 1LBRC. SAFETY MEASURES IN PLACE, WILL MONITOR.
--- NOTE | 2020-07-18 20:14 | NUR ---
RN NOTE BEGAN FFP TRANSFUSION. WILL MONITOR.
--- NOTE | 2020-07-18 20:45 | NUR ---
RN NOTE SPOKE TO ON THE PHONE AND GAVE UPDATE ON PT'S STATUS.
--- NOTE | 2020-07-18 22:03 | NUR ---
RN NOTE FFP TRANSFUSED. TOLERATED WELL. VITAL SIGNS STABLE.
--- NOTE | 2020-07-18 22:15 | NUR ---
RN NOTE 2ND BAG OF FFP TRANSFUSING. WILL MONITOR.
[2020-07-19] VITALS (83 sets, daily range): BP systolic 83–154; BP diastolic 46–85
--- NOTE | 2020-07-19 00:15 | NUR ---
RN NOTE SECOND BAG OF FFP INFUSED. PT TOLERATED WELL. VITAL SIGNS STABLE.
--- NOTE | 2020-07-19 02:00 | NUR ---
RN NOTE COMPLETE BED BATH AND AM CARE COMPLETED. PT TOLERATED WELL. VITAL SIGNS STABLE. ONGOING BLOOD TRANSFUSION. PT NOTED WITH MODERATE AMOUNT OF BLEEDING FROM HD SITE. APPLIED PRESSURE TO SITE AND SECURED WITH TAPE. WILL MONITOR.
[2020-07-19 03:46] LABS: OCCULT BLOOD STOOL POSITIVE (NEGATIVE)
--- NOTE | 2020-07-19 04:19 | NUR ---
RN NOTE BLOOD TRANSFUSION COMPLETED. PT TOLERATED WELL. VITAL SIGNS STABLE.
[2020-07-19] MEDS: MEROPENEM 1 G in IV NS 0.9% 100 ML IV SCH ×2 (04:33→17:23)
[2020-07-19] MEDS: HYDROCORTISONE SOD SUCCINATE 100 MG/2 ML VIAL IV SCH ×3 (04:37→21:12)
[2020-07-19] MEDS: METOCLOPRAMIDE HCL 10 MG/2 ML VIAL IV SCH ×4 (04:37→23:29)
[2020-07-19 05:00] LABS: BASOPHILS # (AUTO) 0.1 /CMM (0.0-0.2); BASOPHILS % (AUTO) 0.5 % (0.0-2.0); EOSINOPHILS % (AUTO) 1.1 % (0.0-6.0); HEMATOCRIT 30 % (39-51); LYMPHOCYTES # (AUTO) 1.4 /CMM (0.8-4.8); LYMPHOCYTES % (AUTO) 4.9 % (20.0-44.0); MEAN CORPUSCULAR HGB CONC 34 g/dl (31.0-36.0); MEAN CORPUSCULAR VOLUME 86 fL (80-96); MONOCYTES # (AUTO) 0.9 /CMM (0.1-1.30); MONOCYTES % (AUTO) 3.3 % (2.0-12.0); NEUTROPHILS # (AUTO) 25.3 /CMM (1.8-8.9); NEUTROPHILS % (AUTO) 90.2 % (43.0-81.0); PLATELET COUNT (AUTO) 93 /CMM (150-450); RED BLOOD CELL COUNT(AUTO) 3.45 MIL/uL (4.5-6.0)
[2020-07-19 05:25] LABS: CALCIUM, SERUM 8.1 mg/dL (8.5-10.1); CREATININE 1.7 mg/dL (0.6-1.3); MAGNESIUM 2.2 mg/dL (1.8-2.4); PHOSPHORUS 3.4 mg/dL (2.5-4.9); POTASSIUM 3.8 mmol/L (3.5-5.1)
[2020-07-19 05:34] LABS: PLATELET COUNT (AUTO) 93 /CMM (150-450)
[2020-07-19 05:35] LABS: D-DIMER > 35.20 mg/L(FEU (0.17-0.50)
[2020-07-19 06:15] LABS: BAND % (MANUAL) 18 % (0.0-5.0); LYMPHOCYTES % (MANUAL) 1 % (16-48); MONOCYTES % (MANUAL) 4 % (0-11.0); NEUTROPHILS % (MANUAL) 74 (42-76); PROMYELOCYTES % 2 % (0-0); REACTIVE LYMPHOCYTES 1 % (0-0)
--- NOTE | 2020-07-19 07:07 | NUR ---
RN NOTE PT NOTED WITH CORE TEMP OF 96.8 VIA RECTAL THERMOMETER. BARE HUGGER PLACED. ALL OTHER VITAL SIGNS STABLE VIA BED SIDE MONITOR. RESPIRATIONS EVEN AND UNLABORED. TOLERATING VENT SETTINGS WELL. NO INDICATIONS OF PAIN OR DISCOMFORT. VASOPRESSORS OFF. SAFETY MEASURES IN PLACE, ENDORSED TO MORNING RN FOR INES .
--- NOTE | 2020-07-19 07:30 | NUR ---
START OF SHIFT NOTE: PT OFF OF PRESSORS OVERNIGHT PER REPORT AND CONFIRMATION OF IV PUMPS. RIGHT FEM DIALYSIS CATHETER PRESSURE DRESSING IS SLIGHTLY PINK, NO DRAINAGE OOZING OUT FROM DRESSING, WILL CONTINUE TO MONITOR. PT ALERT, COOPERATIVE. STATED HE HAD A GOOD NIGHT AND FEELS BETTER THAN YESTERDAY. AM LABS APPEAR TO BE STABLE, WILL NOTIFY MD'S. TRACH MIDLINE ON VENT, NO ISSUES, NO VENT CHANGES. ANNIA CHILEL ON PATIENT FOR LOW TEMP OVERNIGHT, WILL CONTINUE TO MONITOR.
[2020-07-19] MEDS: FLUOXETINE HCL 20 MG CAPSULE PO SCH (08:57)
[2020-07-19] MEDS: GABAPENTIN 300 MG CAPSULE PO SCH ×2 (08:57→17:23)
[2020-07-19] MEDS ORDERED: FLUCONAZOLE IN NS 100 MG in PREMIX 1 EA IV SCH ×2 (09:00)
[2020-07-19] MEDS ORDERED: VANCOMYCIN 1 GM in IV D5W 250ml IV SCH (09:00)
[2020-07-19] MEDS: PANTOPRAZOLE 40 MG VIAL IV SCH ×2 (09:43→21:12)
--- NOTE | 2020-07-19 10:40 | NUR ---
VANCO DOSE HELD PER PHARMACY FOR RANDOM VANCO LEVEL OF 22.
[2020-07-19] MEDS: PHENYLEPHRINE 100 MG in IV NS 0.9% 240 ML IV PRN (12:02)
--- NOTE | 2020-07-19 12:05 | NUR ---
1130 REGLAN HELD UNTIL AFTER DIALYSIS
[2020-07-19 13:03] LABS: HEMOGLOBIN 8.9 g/dL (13.5-17.5)
[2020-07-19] MEDS: IV D5/ 0.9% NACL 1,000 ML IV PRN (14:08)
[2020-07-19 15:14] LABS: *SPE A/G RATIO 0.7 (0.7-1.7); *SPE ALBUMIN 1.7 g/dL (2.9-4.4); *SPE ALPHA-1-GLOBULIN 0.3 g/dL (0.0-0.4); *SPE ALPHA-2-GLOBULIN 0.6 g/dL (0.4-1.0); *SPE BETA GLOBULIN 0.8 g/dL (0.7-1.3); *SPE GLOBULIN, TOTAL 2.3 g/dL (2.2-3.9); *SPE M-SPIKE Not Observed g/dL (Not Observed); *SPEGAMMA GLOBULIN 0.6 g/dL (0.4-1.8)
[2020-07-19] MEDS ORDERED: NEPRO 1,000 ML BOTTLE NG PRN (16:00)
--- NOTE | 2020-07-19 18:42 | NUR ---
END OF SHIFT NOTE: PT HAD A FAIRLY UNEVENTFUL SHIFT. LABS IMPROVED FROM YESTERDAY, NO PRBCS OR FFP ORDERED TO BE GIVEN THIS SHIFT. ALL MD'S AWARE OF ALL LAB RESULTS. RIGHT FEM DIALYSIS CATHETER CONTINUES TO OOZE BLOOD IF PRESSURE DRESSING IS NOT ON, DRESSING REPLACED BY MEDICAL RECORD LIBRARIAN AND BY BEDSIDE RN AT THE END OF THE SHIFT. 1 BM, BLACK IN COLOR THIS SHIFT. TUBE FEEDING STARTED AT 10ML/HR PER MD ORDERS VIA NG TUBE. PER DR. MON GIVE TUBE FEEDING THROUGH NG AND KEEP PEG TUBE CLAMPED AT THIS TIME. VEL-SYNEPHRINE STARTED BACK UP DURING DIALYSIS AND TITRATED OFF AFTER DIALYSIS. PT CHECKED ON HOURLY AND PRN BY NURSING STAFF.
--- NOTE | 2020-07-19 19:00 | NUR ---
Received patient with trache to the ventilator on AC mode, not in any respiratory distress.breathing regular and non labored. Drowsy, easily awakens but easily goes back to sleep, but seems to understand ,nods in agreement , unable to move all extremities but with slight withdrawal to pain. Still off pressors,BP stable .PICC line on SHITAL intact with good blood return, MIDLINE @ ELAINE intact.Trialysis @ right femoral ,dressing intact( endorse by morning RN site still bleeding ),will monitor and change dressing PRN. G tube clamped, NGT with on going feeding ( trickle feed) @ 10 ml/hr. started just this PM ,will closely monitor if tolerated.Aspiration precaution observed. Mid abdominal surgical incision (S/p SBR ) dressing dry and intact .
--- NOTE | 2020-07-19 19:30 | NUR ---
Hypothermic T=96.6 ANNIA HUGGER warmer turned on
--- NOTE | 2020-07-19 21:37 | NUR ---
RT NOTE PT RECEIVED TRACHED ON MECHANICAL VENTILATION WITH PORTEX [address] PT AWAKE/ALERT. SX DONE, TRACH SECURED AND PATENT. SPUTUM OBTAINED. ALARMS ON AND AUDIBLE. NO DISTRESS NOTED. WILL MONITOR T/O SHIFT. Addendum: 07/19/20 at 2138 by MATTHEW MORA RT Amended: Links added.
--- NOTE | 2020-07-19 22:00 | NUR ---
no bleeding noted at the HD cath site,dressing remains dry .
[2020-07-20] VITALS (36 sets, daily range): BP systolic 84–153; BP diastolic 42–100
--- NOTE | 2020-07-20 | NUR ---
Remains stable. Temp. now =99.1 , warming blanket stopped. Asleep ,arousable ,opens eyes but looks tired and weak,not in any distress.Comfort care done ,still with no profuse bleeding of HD cath site ,dressing remains dry and intact.
[2020-07-20 00:06] LABS: IMMUNOGLOBULIN A, SERUM 284 mg/dL (61-437)
--- NOTE | 2020-07-20 02:00 | NUR ---
rEmains hemodynamically stable, no profuse bleeding from the HD cath site. noted high residuals from the feeding ,obtaining feeding material mixed with greenish /bileous drainage.
--- NOTE | 2020-07-20 04:00 | NUR ---
AM bath done,tolerated turning, no sign of distress.
[2020-07-20] MEDS: IV D5/ 0.9% NACL 1,000 ML IV PRN ×2 (04:17→13:56)
--- NOTE | 2020-07-20 04:30 | NUR ---
Noted some brief episodes (on and off ) of flutter like rhythm but with controlled rate, lasted approx 10-15 mins on and off then back to SR.
[2020-07-20 04:53] LABS: BASOPHILS % (AUTO) 0.2 % (0.0-2.0); HEMATOCRIT 26 % (39-51); HEMOGLOBIN 8.6 g/dL (13.5-17.5); LYMPHOCYTES # (AUTO) 1.1 /CMM (0.8-4.8); LYMPHOCYTES % (AUTO) 4.6 % (20.0-44.0); MEAN CORPUSCULAR HGB CONC 33 g/dl (31.0-36.0); MEAN CORPUSCULAR VOLUME 89 fL (80-96); MONOCYTES % (AUTO) 4.2 % (2.0-12.0); NEUTROPHILS # (AUTO) 22.3 /CMM (1.8-8.9); RED BLOOD CELL COUNT(AUTO) 2.96 MIL/uL (4.5-6.0); WHITE BLOOD COUNT (AUTO) 24.6 K/uL (4.3-11.0)
[2020-07-20 04:55] LABS: PLATELET COUNT (AUTO) 84 /CMM (150-450)
[2020-07-20] MEDS: METOCLOPRAMIDE HCL 10 MG/2 ML VIAL IV SCH ×3 (05:09→17:02)
[2020-07-20] MEDS: HYDROCORTISONE SOD SUCCINATE 100 MG/2 ML VIAL IV SCH ×3 (05:09→20:21)
[2020-07-20] MEDS: MEROPENEM 1 G in IV NS 0.9% 100 ML IV SCH ×2 (05:10→16:28)
[2020-07-20 05:14] LABS: CALCIUM, SERUM 7.5 mg/dL (8.5-10.1); CREATININE 1.8 mg/dL (0.6-1.3); MAGNESIUM 2.2 mg/dL (1.8-2.4); PHOSPHORUS 3.2 mg/dL (2.5-4.9); POTASSIUM 3.3 mmol/L (3.5-5.1)
--- NOTE | 2020-07-20 06:00 | NUR ---
Feeding qokwqubt=670 ml, held feeding for now .
--- NOTE | 2020-07-20 07:00 | NUR ---
Stable V/S , not in any distress,no bleeding noted from the HD cath site, no other S/S of bleeding noted .Not tolerating tube feeding. Normothermic now, BP stable all night without any pressors.Remains oliguric and still a little hematuric. Report given to Marta FARAH
--- NOTE | 2020-07-20 08:00 | NUR ---
[employer] ANCHOR NOTES RECEIVED PATIENT IN BED. RESPONSIVE TO VERBAL AND TACTILE STIMULI AND OPENS EYES. WITH TRACH TO VENT SETTING ORDERED. ON TELE MONITORING, SR 84. PATIENT HAS NGTUBE, STOPPED NGTUBE FEEDING AT THIS TIME. RESIDUAL IN 100CC, GREENISH COLOR. ABDOMINAL DRESSING INTACT, NO ACTIVE BLEEDING. GABRIEL CATHETER TO GRAVITY WITH SOME PINKISH COLOR. NOTED WITH PICC LINE, MIDLINE ELAINE, AND TRIALYSIS RIGHT FEMORAL INTACT AND PATENT. FLUSHING WELL. ON IV FLUIDS ORDERED. KEPT HEAD OF BED ELEVATED. SAFETY MEASURES PROVIDED. BED LOCKED AND IN LOWEST POSITION. CALL LIGHT WITHIN REACH. WILL CONTINUE TO MONITOR.
[2020-07-20] MEDS ORDERED: VANCOMYCIN 1 GM in IV D5W 250ml IV SCH (09:00)
[2020-07-20] MEDS: GABAPENTIN 300 MG CAPSULE PO SCH ×2 (09:00→16:16)
[2020-07-20] MEDS: FLUOXETINE HCL 20 MG CAPSULE PO SCH (09:00)
[2020-07-20] MEDS: PANTOPRAZOLE 40 MG VIAL IV SCH ×2 (09:12→20:22)
--- NOTE | 2020-07-20 09:13 | NUR ---
TRANSCRIPTION TYPIST NOTE WILL HOLD MEDICATION NEURONTIN AND PROZAC TILL VERIFIED WITH DR MON WILL F\U PATIENT , PATIENT HAS RESIDUAL 150 ML OF GREEDIEST COLOR
[2020-07-20] MEDS ORDERED: POTASSIUM CL. PREMIX PERIPHER. 50 ML IV SCH (09:30)
--- NOTE | 2020-07-20 10:22 | NUR ---
SUPERVISOR REFRA[employer]ORY PRODUCTS NOTE DR VALVERDE AND DR ENNIS AT BEDSIDE NOTIFIED THAT PATIENT HAS RESIDUAL 200 CC GREENISH COLOR AND WILL HOLD MEDICINE AND WILL NOTIFY DR. MON.
--- NOTE | 2020-07-20 10:56 | NUR ---
TURN DOWN MAN NOTES DR. MON AT BEDSIDE, NOTIFIED PATIENT CAN'T TOLERATE TUBE FEEDING. STILL HAS RESIDUAL 200 CC [employer]. STATED HOLD FEEDING AND MEDICINE VIA NG-TUBE. NEW ORDER FOR TPN PER PHARMACY TO DOSE NOTED AND CARRIED OUT. WILL CONTINUE TO MONITOR.
[2020-07-20] MEDS ORDERED: TPN/PPN PER PHARMACY XX PRN (11:00)
--- NOTE | 2020-07-20 11:45 | NUR ---
ELECTRONIC CONSOLE DISPLAY OPERATOR NOTES BLOOD PRESSURE AT THIS TIME 82/42. HR 88. CHECKED TWICE, STILL LOW. WILL START VEL 0.5 PER HOSPITAL PROTOCOL. CHARGE NURSE AWARE.
[2020-07-20] MEDS: PHENYLEPHRINE 100 MG in IV NS 0.9% 240 ML IV PRN (11:49)
[2020-07-20] MEDS ORDERED: DEXTROSE 50%-WATER 50 ML DISP.SYRIN IV PRN (13:00)
[2020-07-20] MEDS ORDERED: TPN BAG #1 IV SCH ×3 (14:00)
[2020-07-20 14:10] LABS: *ANA ANTI-CENTROMERE B AB <0.2 AI (0.0-0.9); *ANA ANTI-DNA(DS) AB, QN 1 IU/mL (0-9); *ANA ANTI-JO-1 <0.2 AI (0.0-0.9); *ANA ANTICHROMATIN ANTIBODY 0.3 AI (0.0-0.9); *ANA RNP ANTIBODIES 0.2 AI (0.0-0.9); *ANA SJOGREN'S ANTI-SS-A <0.2 AI (0.0-0.9); *ANA SJOGREN'S ANTI-SS-B <0.2 AI (0.0-0.9); *ANAANTI-SCLERODERMA-70 AB <0.2 AI (0.0-0.9); *ANASMITH AB <0.2 AI (0.0-0.9)
--- NOTE | 2020-07-20 14:45 | NUR ---
horticulture supervisor note per dr loc mcfarland to give flu and pna vaccine upon d\c Addendum: 07/20/20 at 1448 by FRANCOIS KEMP RN cont on tpn as ordered all needs attended ,not in distress
--- NOTE | 2020-07-20 16:43 | NUR ---
RANGE TECHNICIAN NOTES SEEN BY INFECTIOUS DISEASE SINGE MACHINE OPERATOR. UPDATED ON PATIENT'S CONDITION. MADE AWARE TEMP EARLIER 99.9, COOLING MEASURES PROVIDED. UPPER AND LOWER EXT, SCROTUM SWELLING, AND HEMATURIA. WBC 24.6. WILL FOLLOW UP FOR ANY FURTHER ORDERS. Addendum: 07/20/20 at 1737 by FRANCOIS KEMP RN morphine 2mg ivp given as ordered for pain in body, saturation 98% ,pain level 8\10
[2020-07-20] MEDS: MORPHINE SULFATE INJ 2 MG/ML DISP.SYRIN IV PRN ×2 (17:15→20:26)
[2020-07-20] MEDS: BLOOD SUGAR DIAGNOSTIC 1 EACH STRIP IN SCH (17:32)
[2020-07-20] MEDS: INSULIN REGULAR, HUMAN 100 UNIT/ML 3 ML VIAL SQ PRN (17:35)
--- NOTE | 2020-07-20 18:31 | NUR ---
PATTERN MECHANIC NOTES PATIENT STILL WITH VENT TO TRACH SETTINGS. TEMP 98.0. HOLD ON VEL DRIP, BP 97/51. STILL NOTED WITH HEMATURIA AND EDEMA ON SCROTUM, UPPER AND LOWER EXT. CONTINUE ON TPN AND IVF FLUIDS. TURNED AND REPOSITIONED. RECEIVED EARLIER OF MORPHINE 2MG, EFFECTIVE AT THIS TIME AND RESTING COMFORTABLY. BED LOCKED AND IN LOWEST POSITION. SAFETY MEASURES IMPLEMENTED. CALL LIGHT WITHIN REACH.ALL NEEDS ATTENDED AND WILL MONITOR.
[2020-07-21] VITALS (34 sets, daily range): BP systolic 93–156; BP diastolic 50–93
[2020-07-21] MEDS: METOCLOPRAMIDE HCL 10 MG/2 ML VIAL IV SCH ×5 (00:04→23:04)
[2020-07-21] MEDS: BLOOD SUGAR DIAGNOSTIC 1 EACH STRIP IN SCH ×4 (00:11→17:56)
[2020-07-21] MEDS: INSULIN REGULAR, HUMAN 100 UNIT/ML 3 ML VIAL SQ PRN ×4 (00:12→18:03)
[2020-07-21] MEDS ORDERED: TPN BAG #2 IV PRN (02:00)
[2020-07-21 04:42] LABS: BASOPHILS % (AUTO) 0.2 % (0.0-2.0); EOSINOPHILS % (AUTO) 0.1 % (0.0-6.0); HEMATOCRIT 23 % (39-51); HEMOGLOBIN 7.4 g/dL (13.5-17.5); LYMPHOCYTES % (AUTO) 4.4 % (20.0-44.0); MEAN CORPUSCULAR HGB CONC 32 g/dl (31.0-36.0); MEAN CORPUSCULAR VOLUME 90 fL (80-96); MONOCYTES % (AUTO) 4.3 % (2.0-12.0); NEUTROPHILS # (AUTO) 20.6 /CMM (1.8-8.9); PLATELET COUNT (AUTO) 63 /CMM (150-450); RED BLOOD CELL COUNT(AUTO) 2.56 MIL/uL (4.5-6.0); WHITE BLOOD COUNT (AUTO) 22.7 K/uL (4.3-11.0)
[2020-07-21 04:57] LABS: CALCIUM, SERUM 7.2 mg/dL (8.5-10.1); CREATININE 2.4 mg/dL (0.6-1.3); PHOSPHORUS 2.4 mg/dL (2.5-4.9); POTASSIUM 2.9 mmol/L (3.5-5.1)
[2020-07-21] MEDS: MEROPENEM 1 G in IV NS 0.9% 100 ML IV SCH ×2 (05:28→16:21)
[2020-07-21] MEDS: HYDROCORTISONE SOD SUCCINATE 100 MG/2 ML VIAL IV SCH ×3 (05:28→20:31)
[2020-07-21 05:35] LABS: LYMPHOCYTES % (MANUAL) 10 % (16-48); MONOCYTES % (MANUAL) 6 % (0-11.0); NEUTROPHILS % (MANUAL) 84 (42-76)
--- NOTE | 2020-07-21 06:15 | NUR ---
MOTOR EXPERT: NO SIGNIFICANT INES DURING THE SHIFT. PT REMAINS LETHARGIC, OPENS EYES WHEN CALLED BY NAME, ABLE TO FOLLOW SIMPLE COMMANDS VIA NODDING OF HEAD, BLINKING OF EYES, AND MOUTHING OF WORDS. VENT SETTINGS ORDERED VIA TRACH AND TOLERATED WELL. NO ACUTE DISTRESS. PAIN MED. GIVEN ORDERED WT GOOD EFFECT. SR ON CARDIAC TELE. AFEBRILE. GT AND NGT CLAMPED. SURGICAL DRESSING ON ABDOMINAL AREA DRY, CLEAN AND INTACT. HEMATURIA NOTED WT MINIMAL OUTPUT FROM F/C. CONTINUE TPN AT 40ML/HR AND D5NS AT 35ML/HR AND ATB IV THERAPY WT NO ASE. ALL NEEDS MET. SAFETY PRECAUTION NOTED AT ALL TIMES.
--- NOTE | 2020-07-21 07:15 | NUR ---
OFFICE EMPLOYEE NOTES RECEIVED PATIENT AOX2-3 , NOT IN ACUTE DISTRESS , DENIES SOB AND DISCOMFORT AT THIS TIME , SPO2 OF 100% VIA MECHANICAL VENTILATOR SETTINGS ORDERED , TRACH OF PORTEX @ [address] , SR 75 ON BEDSIDE MONITOR, GT PATENT AND INTACT CLAMPED , RIGHT NARE NGT CLAMPED NOTED WITH 150ML GREENISH AMOUNT OF GASTRIC RESIDUALS , FC DRAINING VIA GRAVITY WITH TEA COLORED URINE NOTED WITH SEDIMENTS , SHITAL PICC LINE WITH D5NS@ 35ML/HR AND TPN @ 40ML/HR INFUSING WELL , R FEM HD CATH WITH PIGTAIL CLEAN DRY AND INTACT , ALL NEEDS ATTENDED , BED ON LOW AND LOCKED POSITION ,SIDE RAILS X2 , HOB @ 45 , WILL CONTINUE TO MONITOR.
[2020-07-21] MEDS: GABAPENTIN 300 MG CAPSULE PO SCH ×2 (08:02→16:18)
[2020-07-21] MEDS: PANTOPRAZOLE 40 MG VIAL IV SCH ×2 (08:02→20:31)
[2020-07-21] MEDS: FLUOXETINE HCL 20 MG CAPSULE PO SCH (08:02)
[2020-07-21] MEDS: POTASSIUM CL. PREMIX PERIPHER. 50 ML IV SCH ×10 (08:02→16:20)
[2020-07-21] MEDS: MORPHINE SULFATE INJ 2 MG/ML DISP.SYRIN IV PRN ×2 (08:27→14:47)
--- NOTE | 2020-07-21 08:46 | NUR ---
FOOT TENDER NOTES SPOKE WITH DR HOGAN , DISCUSSED CURRENT LABS , NO ACTIVE BLEEDING NOTED , , PER MD ORDER 1 UNIT PRBC TO BE GIVEN WITH HD ,
--- NOTE | 2020-07-21 09:46 | NUR ---
POURER BUGGY LADLE NOTES SPOKE WITH GIULIANA DISCUSSED THAT DR MARQUEZ WANTS TO FOLLOW UP FOR THE ID / SENSITIVITY , PER GIULIANA RESULTS WILL POSSIBLY AVAILABLE IN 1-2 DAYS
--- NOTE | 2020-07-21 11:00 | NUR ---
CONSERVATION PLANNER NOTES SEEN AND EVALUATED BY DR MATHEW , DISCUSSED LABS , LATEST VS , TOLERATING CURRENT VENT SETTINGS WITH NO DISTRESS , AOX2-3 , OFF PRESSORS , PENDING 1 UNIT PRBC WITH HD DUE TO H/H 7.01/11 , SCHEDULE FOR HD TODAY , NPO ON TPN @ 40ML/HR , AWARE
--- NOTE | 2020-07-21 12:00 | NUR ---
OVEN LABORER NOTES PLACED PT ON 8LPM SIMPLE MASK DUE TO LOW O2 SAT OF 88% WILL CONTINUE TO MONITOR Addendum: 07/21/20 at 1835 by DELMAR MORENO RN WRONG PT
[2020-07-21] MEDS ORDERED: Sodium Phosphate 15 MMOL in IV NS 0.9% 245 ML IV SCH (14:00)
[2020-07-21] MEDS: IV D5/ 0.9% NACL 1,000 ML IV PRN (16:00)
--- NOTE | 2020-07-21 17:30 | NUR ---
PATTERNATOR NOTES PT STABLE DURING 15 MINUTES OF BLOOD TRANSFUSION WITH HD , NO TRANSFUSION REACTION NOTED , VS STABLE , AFEBRILE , WILL CONTINUE TO MONITOR
[2020-07-21] MEDS: ALBUMIN 25% 25 GM in PREMIX 1 EA IV PRN (18:04)
--- NOTE | 2020-07-21 19:13 | NUR ---
SUBSTATION SUPERVISOR NOTES PATIENT STABLE AT THIS TIME , WITH ONGOING DIALYSIS , NOT IN ACUTE DISTRESS , DENIES SOB AND DISCOMFORT AT THIS TIME , SPO2 OF 100% VIA MECHANICAL VENTILATOR SETTINGS ORDERED , TRACH OF PORTEX @ [address] , SR 80 ON BEDSIDE MONITOR, GT PATENT AND INTACT CLAMPED , RIGHT NARE NGT CLAMPED NOTED WITH 50ML GREENISH AMOUNT OF GASTRIC RESIDUALS , FC DRAINING VIA GRAVITY WITH TEA COLORED URINE NOTED WITH SEDIMENTS , SHITAL PICC LINE WITH D5NS@ 35ML/HR AND TPN @ 40ML/HR INFUSING WELL , R FEM HD CATH WITH PIGTAIL WITH ONGOING HD , ALL NEEDS ATTENDED , BED ON LOW AND LOCKED POSITION ,SIDE RAILS X2 , HOB @ 45 , REPORT GIVEN TO FLACO FOR CONTINUITY OF CARE .
--- NOTE | 2020-07-21 19:30 | NUR ---
RN NOTES RECEIVED PATIENT IN BED DIALYSIS DONE ABLE TO REMOVE 2300 OUT. BREATHING EVENLY RESPIRATION EVEN NON LABORED. ON MECHANICAL VENTILATION SETTING TOLERATING WELL ORDERED. GT PATENT INTACT AND CLAMPED RT NARE NGT CLAMPED. SHITAL PICC LINE AND RT FEMORAL HD CATH WITH PIGTAIL CLEAN DRY AND INTACT. F/C INTACT YELLOW URINE RUNNING TO GRAVITY. SAFETY MEASURES IN PLACE, BED IN LOW AND LOCKED POSITION, SIDE RAILS UP, CALL LIGHT WITHIN REACH. WILL CONT TO MONITOR FOR INES.
--- NOTE | 2020-07-21 20:09 | NUR ---
RECEIVED PT TRACH ON VENT. PT HAS PORTEX 6 CUFFED, TRACH IS SECURED. PT IS AWAKE AND ALERT NO RESP DISTRESS. SX'D SML AMT OF THIN WHITE SECRETIONS. VENT ALARMS SET AND AUDIBLE. AMBU BAG AT BEDSIDE. VENT PLUGGED INTO RED OUTLET. Addendum: 07/21/20 at 2010 by LISA SHAW RT Amended: Links added.
--- NOTE | 2020-07-21 22:15 | NUR ---
NO CHANGES NOTED. MEDICATIONS TOLERATING WELL. WILL CONT TO MONITOR.
[2020-07-22] VITALS (24 sets, daily range): BP systolic 129–164; BP diastolic 68–98
[2020-07-22] MEDS: BLOOD SUGAR DIAGNOSTIC 1 EACH STRIP IN SCH ×4 (00:13→18:01)
[2020-07-22] MEDS: INSULIN REGULAR, HUMAN 100 UNIT/ML 3 ML VIAL SQ PRN ×4 (00:14→18:42)
[2020-07-22] MEDS: MORPHINE SULFATE INJ 2 MG/ML DISP.SYRIN IV PRN ×3 (01:58→23:23)
[2020-07-22] MEDS ORDERED: TPN BAG #3 IV PRN (02:00)
--- NOTE | 2020-07-22 02:00 | NUR ---
REPOSITION FOR COMFORT MOUTH /TRACH CARE PROVIDED. WILL CONT TO MONITOR.
[2020-07-22 04:52] LABS: BASOPHILS # (AUTO) 0.1 /CMM (0.0-0.2); BASOPHILS % (AUTO) 0.3 % (0.0-2.0); EOSINOPHILS % (AUTO) 0.2 % (0.0-6.0); HEMATOCRIT 27 % (39-51); HEMOGLOBIN 8.8 g/dL (13.5-17.5); LYMPHOCYTES # (AUTO) 1.1 /CMM (0.8-4.8); LYMPHOCYTES % (AUTO) 5.3 % (20.0-44.0); MEAN CORPUSCULAR HGB CONC 32 g/dl (31.0-36.0); MEAN CORPUSCULAR VOLUME 90 fL (80-96); MONOCYTES # (AUTO) 1.5 /CMM (0.1-1.30); MONOCYTES % (AUTO) 6.8 % (2.0-12.0); NEUTROPHILS # (AUTO) 18.7 /CMM (1.8-8.9); NEUTROPHILS % (AUTO) 87.4 % (43.0-81.0); PLATELET COUNT (AUTO) 51 /CMM (150-450); RED BLOOD CELL COUNT(AUTO) 3.03 MIL/uL (4.5-6.0); WHITE BLOOD COUNT (AUTO) 21.4 K/uL (4.3-11.0)
--- NOTE | 2020-07-22 05:00 | NUR ---
BED BATH GIVEN PATIENT TOLERATED WELL. KEPT CLEAN DRY AND COMFORTABLE.
[2020-07-22 05:11] LABS: ALBUMIN 1.9 g/dL (3.4-5.0); BILIRUBIN,TOTAL 1.2 mg/dL (0.2-1.0); CALCIUM, SERUM 7.9 mg/dL (8.5-10.1); MAGNESIUM 1.9 mg/dL (1.8-2.4); PHOSPHORUS 2.3 mg/dL (2.5-4.9); POTASSIUM 3.9 mmol/L (3.5-5.1); TOTAL PROTEIN, SERUM 4.6 g/dL (6.4-8.2)
[2020-07-22] MEDS: MEROPENEM 1 G in IV NS 0.9% 100 ML IV SCH (05:33)
[2020-07-22] MEDS: METOCLOPRAMIDE HCL 10 MG/2 ML VIAL IV SCH ×4 (05:35→23:22)
[2020-07-22] MEDS: HYDROCORTISONE SOD SUCCINATE 100 MG/2 ML VIAL IV SCH ×3 (05:35→20:23)
--- NOTE | 2020-07-22 07:06 | NUR ---
RN NOTES PATIENT REMAINED STABLE DURING SHIFT. AO X2-3, NODS HEAD FOR YES OR NO TRYING TO WHISPER. ROUTINE MEDICATIONS AND PRN MORPHINE GIVEN NOTED TO BE EFFECTIVE. NO S/S OF ACUTE DISTRESS NOTED. GT PATENT INTACT AND CLAMPED RT NARE NGT CLAMPED. SHITAL PICC LINE AND RT FEMORAL HD CATH WITH PIGTAIL CLEAN DRY AND INTACT. TPN IS RUNNING AT 60CC/HR TOLERATING WELL. F/C INTACT TEA COLOR URINE RUNNING TO GRAVITY. SAFETY MEASURES IN PLACE, BED IN LOW AND LOCKED POSITION, SIDE RAILS UP, CALL LIGHT WITHIN REACH. WILL ENDORSE TO AM NURSE FOR INES.
--- NOTE | 2020-07-22 07:29 | NUR ---
RT Pt received trached on mechanical ventilation with noted settings. Pt is awake and alert. Vent alarms are set and audible with BVM by bedside. Vent is plugged into red outlet. No SOB or respiratory distress noted. Addendum: 07/22/20 at 1545 by NOBLE BURNS RT Amended: Links added.
[2020-07-22] MEDS: FLUOXETINE HCL 20 MG CAPSULE PO SCH (07:42)
[2020-07-22] MEDS: GABAPENTIN 300 MG CAPSULE PO SCH ×2 (07:42→17:00)
[2020-07-22] MEDS: PANTOPRAZOLE 40 MG VIAL IV SCH ×2 (09:27→20:23)
[2020-07-22] MEDS ORDERED: Sodium Phosphate 15 MMOL in IV NS 0.9% 245 ML IV SCH (10:00)
[2020-07-22] MEDS: CEFEPIME 2 GM in IV D5W 100 ML IV SCH ×2 (11:25→23:13)
[2020-07-22] MEDS ORDERED: TPN BAG #4 IV PRN (18:00)
--- NOTE | 2020-07-22 19:30 | NUR ---
RN NOTES RECEIVED PATIENT IN BED. TRACH IN PLACE, VENT SETTING TOLERATING WELL. RESPIRATION EVEN NON LABORED. TELE MONITOR SR IN 80'S. IV SITE SHITAL PICC LINE INTACT PATENT FLUSHED WELL. CVP IN PLACE. NO S/S OF PAIN OR DISCOMFORT NOTED. NGT IN PLACE, PLACEMENT CHECKED BY AUSCULTATION CONNECTED TO INTERMENT SUCTION. FEMORAL HD CATHETER INTACT NO S/S OF BLEEDING NO SWELLING NOTED. F/C INTACT TEA COLOR URINE RUNNING TO GRAVITY. SAFETY MEASURES IN PLACE, BED IN LOW AND LOCKED POSITION, SIDE RAILS UPx3, CALL LIGHT WITHIN REACH. WILL CONTINUE TO MONITOR FOR INES .
--- NOTE | 2020-07-22 19:30 | NUR ---
END OF SHIFT NOTE: PT HAD A FAIRLY UNEVENTFUL SHIFT. CVP STARTED THIS AM PER ORDERS FROM DR. CONSTANTINO, CVP AVERAGED 8 THIS SHIFT. NO BLOOD TRANSFUSIONS THIS SHIFT. MORPHINE GIVEN X1 THIS SHIFT AT 1016. TPN INFUSING PER MD ORDERS. SODIUM PHOSPHATE GIVEN PER MD ORDERS. NO DIALYSIS TODAY. NO BM TODAY. PT CHECKED ON HOURLY AND PRN BY NURSING STAFF.
[2020-07-22] MEDS: IV D5/ 0.9% NACL 1,000 ML IV PRN (20:32)
--- NOTE | 2020-07-22 22:00 | NUR ---
REPOSITION FOR COMFORT. KEPT CLEAN DRY AND COMFORTABLE. WILL CONT TO MONITOR.
[2020-07-23] VITALS (28 sets, daily range): BP systolic 106–158; BP diastolic 61–92
--- NOTE | 2020-07-23 | NUR ---
BS 175, 3 UNITS OF INSULIN GIVEN.
--- NOTE | 2020-07-23 00:21 | NUR ---
PATIENT NOTED WITH OCCIPITAL REDNESS NO SKIN BREAKDOWN NOTED. TURNING AND REPOSITIONS TOLERATED. WILL CONT TO MONITOR.
[2020-07-23] MEDS: BLOOD SUGAR DIAGNOSTIC 1 EACH STRIP IN SCH ×5 (00:57→23:23)
[2020-07-23] MEDS: INSULIN REGULAR, HUMAN 100 UNIT/ML 3 ML VIAL SQ PRN ×4 (00:59→18:10)
--- NOTE | 2020-07-23 02:00 | NUR ---
NO CHANGES NOTED WILL CONT TO MONITOR.
[2020-07-23 04:45] LABS: BASOPHILS % (AUTO) 0.2 % (0.0-2.0); EOSINOPHILS % (AUTO) 0.3 % (0.0-6.0); HEMATOCRIT 27 % (39-51); HEMOGLOBIN 8.9 g/dL (13.5-17.5); LYMPHOCYTES # (AUTO) 0.9 /CMM (0.8-4.8); LYMPHOCYTES % (AUTO) 4.7 % (20.0-44.0); MEAN CORPUSCULAR HGB CONC 32 g/dl (31.0-36.0); MEAN CORPUSCULAR VOLUME 91 fL (80-96); MONOCYTES # (AUTO) 1.2 /CMM (0.1-1.30); NEUTROPHILS % (AUTO) 88.8 % (43.0-81.0); PLATELET COUNT (AUTO) 72 /CMM (150-450); RED BLOOD CELL COUNT(AUTO) 3.03 MIL/uL (4.5-6.0); WHITE BLOOD COUNT (AUTO) 20.3 K/uL (4.3-11.0)
[2020-07-23] MEDS: MORPHINE SULFATE INJ 2 MG/ML DISP.SYRIN IV PRN ×4 (05:08→23:23)
[2020-07-23] MEDS: METOCLOPRAMIDE HCL 10 MG/2 ML VIAL IV SCH ×4 (05:14→23:23)
[2020-07-23] MEDS: HYDROCORTISONE SOD SUCCINATE 100 MG/2 ML VIAL IV SCH ×3 (05:14→21:24)
[2020-07-23 05:15] LABS: ALBUMIN 1.7 g/dL (3.4-5.0); BILIRUBIN,TOTAL 1.5 mg/dL (0.2-1.0); CALCIUM, SERUM 7.4 mg/dL (8.5-10.1); CREATININE 2.2 mg/dL (0.6-1.3); MAGNESIUM 1.7 mg/dL (1.8-2.4); POTASSIUM 3.6 mmol/L (3.5-5.1); TOTAL PROTEIN, SERUM 4.3 g/dL (6.4-8.2)
[2020-07-23 05:38] LABS: D-DIMER 26.13 mg/L(FEU (0.17-0.50)
--- NOTE | 2020-07-23 07:17 | NUR ---
RN NOTES NO CHANGES NOTED DURING SHIFT. ROUTINE MEDICATIONS WERE GIVEN ALONG WITH PRN MORPHINE X2 FOR PAIN NOTED TO BE EFFECTIVE. VITAL SIGNS REMAINED WNL. NO S/S OF ACUTE DISTRESS NOTED. NGT IN PLACE, PLACEMENT CHECKED BY AUSCULTATION CONNECTED TO INTERMENT SUCTION. FEMORAL HD CATHETER INTACT NO S/S OF BLEEDING NO SWELLING NOTED. F/C INTACT TEA COLOR URINE RUNNING TO GRAVITY. SAFETY MEASURES IN PLACE, BED IN LOW AND LOCKED POSITION, SIDE RAILS UPx3, CALL LIGHT WITHIN REACH. WILL ENDORSE TO AM NURSE FOR INES.
--- NOTE | 2020-07-23 07:47 | NUR ---
WOUND CARE FOLLOW UP: PT SEEN FOR RE-EVALUATION OF SACRAL DEEP TISSUE INJURY (STILL INTACT), PRESENT ON ADMISSION. PT ALSO NOTED TO HAVE IRREGULAR SHAPED DISCOLORATION TO POSTERIOR SCALP. PT DENIES ANY DISCOMFORT TO AREA. RECOMMENDATIONS MADE FOR CONTINUED WOUND CARE OF SACRAL AREA AND GENERAL SKIN PROTECTION AND PROTECTION OF SCALP DISCOLORED AREA. DISCUSSED WITH NURSING STAFF. IN AGREEMENT WITH PLAN OF CARE. PT IS ON FIRST STEP [facility]. Addendum: 07/23/20 at 0750 by LANRE IYER WNDNU Amended: Links added. Addendum: 07/23/20 at 0751 by LANRE IYER WNDNU PLATELETS NOTED TO BE LOW AT 72.
[2020-07-23] MEDS: GABAPENTIN 300 MG CAPSULE PO SCH ×2 (08:37→17:00)
[2020-07-23] MEDS: FLUOXETINE HCL 20 MG CAPSULE PO SCH (08:37)
[2020-07-23] MEDS: ALBUMIN 25% 25 GM in PREMIX 1 EA IV PRN (09:54)
[2020-07-23] MEDS ORDERED: TPN BAG #5 IV PRN (10:00)
[2020-07-23] MEDS: PANTOPRAZOLE 40 MG VIAL IV SCH ×2 (11:28→21:24)
[2020-07-23] MEDS: CEFEPIME 2 GM in IV D5W 100 ML IV SCH ×2 (11:28→23:23)
--- NOTE | 2020-07-23 19:00 | NUR ---
received patient in no acute distress in bed. patient is on o2 via mechanical vent via trach. trach site is clean dry and intact. patient has right nare ngt that is clamped as well as Gtube. patient was not tolerating tube feeding and now on TPN. patient has bert picc and right femoral hd cath with pigtail. bed in low lock position with rials up x 2. call light within reach and all safety measures ensured and carried out. will continue to monitor.
--- NOTE | 2020-07-23 19:26 | NUR ---
END OF SHIFT NOTE: PT HAD AN UNEVENTFUL SHIFT. PT HAD DIALYSIS 1L OFF PER COMPUTATIONAL CHEMIST. PENDING 2 UNITS OF POOLED [facility] FROM [facility], BLOOD BANK TECH STATED THEY WILL CALL WHEN [facility] IS AVAILABLE FOR PARTS DESIGNER, ENDORSED TO NEXT SHIFT. IVF DC'D TODAY. PT CHECKED ON HOURLY AND PRN BY NURSING STAFF.
--- NOTE | 2020-07-23 23:02 | NUR ---
1 OF 2 UNITS OF FRESH FROZEN PLASMA GIVEN PER ORDERS.
[2020-07-24] VITALS (20 sets, daily range): BP systolic 101–163; BP diastolic 56–97
[2020-07-24] MEDS: INSULIN REGULAR, HUMAN 100 UNIT/ML 3 ML VIAL SQ PRN ×3 (00:27→11:39)
--- NOTE | 2020-07-24 00:59 | NUR ---
2 OF 2 UNITS OF FRESH FROZEN PLASMA INFUSING.
[2020-07-24] MEDS ORDERED: TPN BAG #6 IV PRN (01:00)
[2020-07-24] MEDS: MORPHINE SULFATE INJ 4 MG/ML DISP.SYRIN IV PRN (02:49)
[2020-07-24 04:47] LABS: BASOPHILS % (AUTO) 0.1 % (0.0-2.0); EOSINOPHILS % (AUTO) 0.2 % (0.0-6.0); HEMATOCRIT 26 % (39-51); HEMOGLOBIN 8.4 g/dL (13.5-17.5); LYMPHOCYTES # (AUTO) 0.8 /CMM (0.8-4.8); LYMPHOCYTES % (AUTO) 3.4 % (20.0-44.0); MEAN CORPUSCULAR HGB CONC 32 g/dl (31.0-36.0); MEAN CORPUSCULAR VOLUME 91 fL (80-96); MONOCYTES # (AUTO) 1.3 /CMM (0.1-1.30); MONOCYTES % (AUTO) 5.8 % (2.0-12.0); NEUTROPHILS # (AUTO) 20.4 /CMM (1.8-8.9); NEUTROPHILS % (AUTO) 90.5 % (43.0-81.0); PLATELET COUNT (AUTO) 86 /CMM (150-450); RED BLOOD CELL COUNT(AUTO) 2.86 MIL/uL (4.5-6.0); WHITE BLOOD COUNT (AUTO) 22.6 K/uL (4.3-11.0)
[2020-07-24 05:03] LABS: CALCIUM, SERUM 7.8 mg/dL (8.5-10.1); MAGNESIUM 1.7 mg/dL (1.8-2.4); PHOSPHORUS 2.5 mg/dL (2.5-4.9); POTASSIUM 3.3 mmol/L (3.5-5.1)
[2020-07-24 05:09] LABS: D-DIMER 32.71 mg/L(FEU (0.17-0.50)
[2020-07-24 05:30] LABS: LYMPHOCYTES % (MANUAL) 7 % (16-48); MONOCYTES % (MANUAL) 6 % (0-11.0); NEUTROPHILS % (MANUAL) 84 (42-76)
[2020-07-24 05:31] LABS: METAMYELOCYTES % 3 % (0-0)
[2020-07-24] MEDS: HYDROCORTISONE SOD SUCCINATE 100 MG/2 ML VIAL IV SCH ×3 (05:32→21:18)
[2020-07-24] MEDS: METOCLOPRAMIDE HCL 10 MG/2 ML VIAL IV SCH ×3 (05:32→18:24)
[2020-07-24] MEDS: BLOOD SUGAR DIAGNOSTIC 1 EACH STRIP IN SCH ×3 (05:33→18:25)
--- NOTE | 2020-07-24 07:30 | NUR ---
RECEIVED PATIENT IN BED. NO ACUTE DISTRESS NOTED. PATIENT NONVERBAL, BUT ABLE TO FOLLOW COMMANDS, MOUTH SOME WORDS. PATIENT ON MECHANICAL VENTILATOR, TOLERATING SETTINGS WELL, SATURATING WELL AT 97%. PATIENT ON PRESS SET UP, NORMAL SINUS RHYTHM NOTED. PATIENT NPO STATUS ACKNOWLEDGED. PATIENT G-TUBE IN PLACE, BUT NOT IN USE. PATIENT SHITAL PICC LINE IN PLACE, INTACT, PATENT, FLUSHED WELL. PATIENT CVP IN PLACE, ZEROED, WILL CONTINUE TO MONITOR. PATIENT GABRIEL CATHETER IN PLACE, INTACT, DRAINING TO GRAVITY. PATIENT SAFETY MEASURES MAINTAINED. WILL CONTINUE TO MONITOR.
--- NOTE | 2020-07-24 07:31 | NUR ---
patient remains in no acute distress in bed. patient did not have any significant change in condition during the shift. all needs met, all orders carried out. patient tolerating vent setting well. will endorse care to am rn for continuity of care.
[2020-07-24] MEDS ORDERED: CLONIDINE HCL 0.2MG/24H PTWK 1 EA PATCH TD SCH (08:30)
[2020-07-24] MEDS: FLUOXETINE HCL 20 MG CAPSULE PO SCH (08:35)
[2020-07-24] MEDS: GABAPENTIN 300 MG CAPSULE PO SCH ×2 (08:35→18:24)
[2020-07-24] MEDS: PANTOPRAZOLE 40 MG VIAL IV SCH ×2 (08:35→21:18)
[2020-07-24] MEDS ORDERED: POTASSIUM PHOSPHATE MM 15 MMOL in IV NS 0.9% 250 ML IV SCH (09:00)
[2020-07-24] MEDS ORDERED: Magnesium 1GM/D5W 100ML PREMIX 100 ML IV SCH (10:30)
[2020-07-24] MEDS: CEFEPIME 2 GM in IV D5W 100 ML IV SCH (11:15)
[2020-07-24] MEDS: NEPRO 1,000 ML BOTTLE GT PRN (14:55)
[2020-07-24] MEDS ORDERED: TPN BAG #7 IV SCH (16:00)
--- NOTE | 2020-07-24 17:00 | NUR ---
GAVE REPORT TO SOFI FRANZ FOR CONTINUITY OF CARE. TRANSFERRED PATIENT TO [facility], ROOM 115-1 IN STABLE CONDITION
--- NOTE | 2020-07-24 17:00 | NUR ---
RN NOTES RECEIVED REPORT FROM KELBY AND TRANSFERRED PT TO 115 BED 1 VS WNL
--- NOTE | 2020-07-24 18:56 | NUR ---
RN CLOSING NOTES RECEIVED PT IN BED RESTING. ALERT AND ORIENTED [id number] COMMANDS..TRACH /ETT ORDERED NO SOB OR DISTRESS NOTED.SHITAL PICC LINE TKO IS RUNNING NO S/S INFILTRATION OR INFECTION NOTED. RT FEMORAL HD PIGTAIL. NEPHRO 1.8 BUCK STARTED AT 10 ML/HR. NGT TUBE IS VERIFIED PLACEMENT BY AUSCULTATION. SAFETY MEASUREMENTS PER PROTOCOL. BED IS IN THE LOWEST POSITION. CALL LIGHT WITHIN THE REACH. WILL ENDORSE TO NIGHTSHIFT FOR INES
--- NOTE | 2020-07-24 19:40 | NUR ---
RN NOTES, PATIENT RECEIVING TPN AT 70ML/HR AND GT FEEDING STARTED TODAY DURING THE DAY AT 10ML, NO RESIDUAL NOTED AT THIS TIME, AND PATIENT TOLERATING THE 10ML WELL, PLACEMENT VERIFIED FOR BOTH RIGHT NG TUBE AND GT AND POSITIVE PLACEMENT NOTED, PATIENT RECEIVING FEEDING VIA GT, AND RIGHT NARE GT CLAMPED, ACCORDING TO DAY NURSE, NO PLAN TO REMOVE THE NGT AT THIS TIME, HOB ELEVATED AT ALL TIMES FOR ASPIRATION PRECAUTIONS.
--- NOTE | 2020-07-24 19:40 | NUR ---
RN OPENING NOTES, RECEIVED PT IN BED RESTING, AWAKE A/O ALERT ABLE TO FOLLOW COMMANDS MOUTH WORDS, WITH TRACH ON MECHANICAL VENTILATOR, NO SOB OR DISTRESS NOTED, NSR IN MONITOR WITH OCCASIONAL PVCS, WITH HR IN 70S AT THIS TIME, SHITAL PICC LINE IN PLACED, NO S/S INFILTRATION OR INFECTION NOTED, RT FEMORAL HD PIGTAIL. NEPHRO 1.8 BUCK STARTED AT 10 ML/HR, NO RESIDUAL AT THIS TIME, GT AND NGT TUBE IS VERIFIED PLACEMENT BY AUSCULTATION, SAFETY MEASUREMENTS PER PROTOCOL, BED LOCKED AND LOWEST POSITION, CALL LIGHT WITHIN THE REACH, WILL CONTINUE TO MONITOR CLOSELY.
[2020-07-25] VITALS: BP 146/69
[2020-07-25] MEDS: METOCLOPRAMIDE HCL 10 MG/2 ML VIAL IV SCH ×5 (00:27→23:50)
[2020-07-25] MEDS: BLOOD SUGAR DIAGNOSTIC 1 EACH STRIP IN SCH ×4 (00:41→18:33)
[2020-07-25] MEDS: INSULIN REGULAR, HUMAN 100 UNIT/ML 3 ML VIAL SQ PRN ×5 (00:44→23:59)
[2020-07-25] MEDS: MORPHINE SULFATE INJ 2 MG/ML DISP.SYRIN IV PRN ×2 (02:02→18:46)
--- NOTE | 2020-07-25 02:02 | NUR ---
RN NOTES, PRN MORPHINE 2ML ADMINISTERED ORDER FOR C/O GENERALIZED PAIN RATE OF 7/10, WILL CONTINUE TO MONITOR CLOSELY.
[2020-07-25 04:00] VITALS: BP 127/71
[2020-07-25] MEDS: HYDROCORTISONE SOD SUCCINATE 100 MG/2 ML VIAL IV SCH ×2 (04:43→12:16)
[2020-07-25] MEDS ORDERED: TPN BAG #8 IV SCH (06:00)
[2020-07-25 06:08] LABS: BASOPHILS % (AUTO) 0.1 % (0.0-2.0); EOSINOPHILS % (AUTO) 0.2 % (0.0-6.0); HEMATOCRIT 26 % (39-51); HEMOGLOBIN 8.4 g/dL (13.5-17.5); LYMPHOCYTES # (AUTO) 0.8 /CMM (0.8-4.8); MEAN CORPUSCULAR HGB CONC 32 g/dl (31.0-36.0); MEAN CORPUSCULAR VOLUME 92 fL (80-96); MONOCYTES # (AUTO) 1.4 /CMM (0.1-1.30); NEUTROPHILS # (AUTO) 25.1 /CMM (1.8-8.9); NEUTROPHILS % (AUTO) 91.7 % (43.0-81.0); PLATELET COUNT (AUTO) 105 /CMM (150-450); RED BLOOD CELL COUNT(AUTO) 2.86 MIL/uL (4.5-6.0); WHITE BLOOD COUNT (AUTO) 27.4 K/uL (4.3-11.0)
[2020-07-25 06:15] LABS: CALCIUM, SERUM 7.6 mg/dL (8.5-10.1); CREATININE 1.9 mg/dL (0.6-1.3); MAGNESIUM 1.8 mg/dL (1.8-2.4); PHOSPHORUS 2.9 mg/dL (2.5-4.9); POTASSIUM 3.5 mmol/L (3.5-5.1)
--- NOTE | 2020-07-25 06:44 | NUR ---
RN CLOSING NOTES, PATIENT IN BED ASLEEP, AROUSES TO VERBAL STIMULI, WITH TRACH ON MECHANICAL VENTILATOR, NO SOB OR DISTRESS NOTED, NSR IN MONITOR WITH OCCASIONAL PVCS, WITH HR MOSTLY IN 70S-80S THROUGHOUT THE NIGHT, SHITAL PICC LINE IN PLACED, AND ELAINE MIDLINE IN PLACE, NO S/S INFILTRATION OR INFECTION NOTED, RT FEMORAL HD PIGTAIL, CONTINUE IN TPN AT 70ML/HR, GT AND RIGHT NARE NGT IN PLACE, NGT CLAMPED AND GT FEEDING VIA GT SINCE YESTERDAY AT 10ML/HR PATIENT TOLERATED WELL, WITH 2ML RESIDUAL AT THIS TIME,HOB ELEVATED FOR ASPIRATION PRECAUTIONS, FC IN PLACED DRAINING TEA COLOR URINE, ALL SAFETY MEASUREMENTS OBSERVED, NO SIGNIFICANT CHANGE IN CONDITION DURING THE NIGHT, BED LOCKED AND LOWEST POSITION, CALL LIGHT WITHIN THE REACH, WILL ENDORSE CONTINUITY OF CARE TO ONCOMING NURSE.
--- NOTE | 2020-07-25 07:30 | NUR ---
RN OPENING NOTE RECEIVED PATIENT IN BED, NO S/S OF DISTRESS, PATIENT IS NON VERBAL BUT A/O X4, COMMUNICATES BY MOUTHING WORDS AND WITH HEAD NODS, TRACH PORTEX 6, VENT SETTING AC 20, TV 500, FIO2 30%, PEEP 0. TPN 70ML/HR, PED TUBE FEEDING 10ML/HR. BED IN LOWEST LOCKED POSITION, SAFETY MEASURES IN PLACE, CALL LIGHT WITHIN REACH, WILL CONTINUE TO MONITOR.
[2020-07-25 08:00] VITALS: BP 130/71
[2020-07-25 08:27] LABS: EOSINOPHILS % (MANUAL) 1 % (0-4); LYMPHOCYTES % (MANUAL) 5 % (16-48); MONOCYTES % (MANUAL) 3 % (0-11.0); NEUTROPHILS % (MANUAL) 91 (42-76)
[2020-07-25] MEDS: GABAPENTIN 300 MG CAPSULE PO SCH ×2 (08:29→17:08)
[2020-07-25] MEDS: FLUOXETINE HCL 20 MG CAPSULE PO SCH (08:29)
[2020-07-25] MEDS: PANTOPRAZOLE 40 MG VIAL IV SCH ×2 (08:30→20:26)
[2020-07-25 10:01] LABS: PLATELET COUNT (AUTO) 99 /CMM (150-450)
[2020-07-25 10:35] LABS: D-DIMER > 35.20 mg/L(FEU (0.17-0.50)
--- NOTE | 2020-07-25 11:30 | NUR ---
RN NOTE DIALYSIS JUST COMPLETED. 1 LITER OUT. K+ 3.5.
[2020-07-25 12:00] VITALS: BP 123/60
--- NOTE | 2020-07-25 13:27 | NUR ---
RN NOTE CALLED AND GIVEN REPORT ON PATIENT STATUS AND PLAN OF CARE
[2020-07-25] MEDS ORDERED: POTASSIUM CL. PREMIX PERIPHER. 50 ML IV SCH (15:00)
[2020-07-25 16:00] VITALS: BP 128/69
--- NOTE | 2020-07-25 17:49 | NUR ---
FOUND NGT DISLODGED. CHECKED RESIDUAL ON PEG. ZERO RESIDUAL. REMOVED NGT PT TOLERATED PROCEDURE WELL. INFORMED MD. INCREASED FEEDING TO 25ML/HR
--- NOTE | 2020-07-25 18:53 | NUR ---
RN NOTE PATIENT COMPLAINED OF PAIN 7/10 IN ABDOMEN AND SACRUM. GAVE 2ML OF PRN MORPHINE. O2 SAT 94%, HR 94. WILL REASSESS PAIN AND REPOSITION.
--- NOTE | 2020-07-25 19:32 | NUR ---
RN CLOSING NOTE PATIENT IN BED NO S/S OF DISTRESS, NO RESP DISTRESS, PATIENT ON VENT TRACH PORTEX 6 VENT SET AC 20, TV 500, FIO2 30%, PEEP 0, TPN RUNNING AT 70ML/HR, TUBE FEEDING 25ML/ HR, GIVEN MORPHINE FOR PAIN AND REPOSITIONED, GABRIEL CATHETER IN PLACE, 300ML URINE OUT, R FEMORAL HD CATH, PIC LINE R FA, PATIENT MOUTHS WORDS, A/O X4, BED IN LOWEST LOCKED POSITION, SAFETY MEASURES IN PLACE, CALL LIGHT WITHIN REACH, WILL ENDORSE TO LOAN SECRETARY.
--- NOTE | 2020-07-25 19:35 | NUR ---
RN OPENING NOTES, RECEIVED PT IN BED RESTING ASLEEP AT THIS TIME, WITH TRACH ON MECHANICAL VENTILATOR TOLERATING SETTINGS WELL, NO SOB OR DISTRESS NOTED, NSR IN MONITOR, HR 70S AT THIS TIME, SHITAL PICC LINE/ ELAINE MIDLINE IN PLACE, NO S/S INFILTRATION OR INFECTION NOTED, RT FEMORAL HD PIGTAIL. GT IN PLACE NEPHRO 1.8 INFUSING AT 25ML/HR NO RESIDUAL NOTED AT THIS TIME, S/P NG REMOVAL, SAFETY MEASUREMENTS PER PROTOCOL, BED LOCKED AND LOWEST POSITION, CALL LIGHT WITHIN THE REACH, WILL CONTINUE TO MONITOR CLOSELY.
--- NOTE | 2020-07-25 19:35 | NUR ---
RN NOTES, TPN CONTINUE AT 70ML/HR, PATIENT TOLERATED WELL.
[2020-07-25 20:00] VITALS: BP 113/71
[2020-07-25] MEDS ORDERED: TPN BAG #9 IV SCH (20:00)
[2020-07-25] MEDS: NEPRO 1,000 ML BOTTLE GT PRN (20:52)
[2020-07-25] MEDS: CEFEPIME 1 GM in IV D5W 50 ML IV SCH (21:47)
[2020-07-26] VITALS (9 sets, daily range): BP systolic 88–144; BP diastolic 46–67
[2020-07-26] MEDS: BLOOD SUGAR DIAGNOSTIC 1 EACH STRIP IN SCH ×5 (00:01→22:47)
[2020-07-26] MEDS: MORPHINE SULFATE INJ 2 MG/ML DISP.SYRIN IV PRN ×2 (00:04→06:14)
[2020-07-26] MEDS: METOCLOPRAMIDE HCL 10 MG/2 ML VIAL IV SCH ×4 (04:53→23:58)
[2020-07-26] MEDS: INSULIN REGULAR, HUMAN 100 UNIT/ML 3 ML VIAL SQ PRN ×4 (05:33→22:48)
--- NOTE | 2020-07-26 05:57 | NUR ---
RT NOTE PT REC'D TRACH ON [facility] VENT ON AC MODE. PT SHOWS NO SIGNS OF RESP DISTRESS OR SOB. PT AWAKE AND ALERT. TRACH IS PATENT AND SECURED. PT SX'D FOR SMALL AMT OF PALE YELLOW SECRETIONS. ALARMS ARE SET AND AUDIBLE. VENT PLUGGED INTO RED OUTLET. AMBU BAG BEDSIDE. WILL CONTINUE TO MONITOR CLOSELY. Addendum: 07/26/20 at 0559 by CASSY WHITEHEAD RT Amended: Links added.
[2020-07-26 06:30] LABS: BASOPHILS % (AUTO) 0.1 % (0.0-2.0); EOSINOPHILS % (AUTO) 0.6 % (0.0-6.0); HEMATOCRIT 24 % (39-51); HEMOGLOBIN 7.7 g/dL (13.5-17.5); LYMPHOCYTES # (AUTO) 0.9 /CMM (0.8-4.8); LYMPHOCYTES % (AUTO) 3.8 % (20.0-44.0); MEAN CORPUSCULAR HGB CONC 33 g/dl (31.0-36.0); MEAN CORPUSCULAR VOLUME 93 fL (80-96); MONOCYTES # (AUTO) 1.4 /CMM (0.1-1.30); MONOCYTES % (AUTO) 5.5 % (2.0-12.0); NEUTROPHILS # (AUTO) 22.3 /CMM (1.8-8.9); PLATELET COUNT (AUTO) 118 /CMM (150-450); RED BLOOD CELL COUNT(AUTO) 2.56 MIL/uL (4.5-6.0); WHITE BLOOD COUNT (AUTO) 24.8 K/uL (4.3-11.0)
[2020-07-26 06:48] LABS: ALBUMIN 1.5 g/dL (3.4-5.0); CALCIUM, SERUM 7.3 mg/dL (8.5-10.1); CREATININE 1.9 mg/dL (0.6-1.3); MAGNESIUM 1.6 mg/dL (1.8-2.4); PHOSPHORUS 2.7 mg/dL (2.5-4.9); POTASSIUM 2.9 mmol/L (3.5-5.1); TOTAL PROTEIN, SERUM 4.3 g/dL (6.4-8.2)
--- NOTE | 2020-07-26 06:53 | NUR ---
RN CLOSING NOTES, PATIENT IN BED RESTING ASLEEP AT THIS TIME, WITH TRACH ON MECHANICAL VENTILATOR TOLERATING SETTINGS WELL, NO SOB OR DISTRESS NOTED, NSR IN MONITOR WITH HR 70-80S THROUGHOUT THE NIGHT, SHITAL PICC LINE/ ELAINE MIDLINE IN PLACE, NO S/S INFILTRATION OR INFECTION NOTED, RT FEMORAL HD PIGTAIL. GT IN PLACE NEPHRO 1.8 INFUSING AT 25ML/HR NO RESIDUAL NOTED THROUGHOUT THE NIGHT PATIENT TOLERATED WELL THE 25ML/HR, CONTINUE WITH TPN AT 70ML/HR, NO SIGNIFICANT CHANGE IN CONDITION, SAFETY MEASURES IN PLACE, BED LOCKED AND LOWEST POSITION, CALL LIGHT WITHIN THE REACH, WILL ENDORSE CONTINUITY OF CARE TO ONCOMING NURSE..
--- NOTE | 2020-07-26 07:30 | NUR ---
RN OPENING NOTE PATIENT IN BED, NO S/S OF DISTRESS, NO RESP ARREST SYMPTOMS, PATIENT ON VENT TO TRACH PORTEX 6 AC 20, TV 500, FIO2 30%, PEEP 0, PEG TUBE IN PLACE, NO RESIDUAL, O2 SAT 94%, R FEMORAL PIGTAIL FOR HD, R U ARM PICC LINE, AND L U ARM MIDLINE RUNNING TPN 70ML/HR, TUBE FEEDING RUNNING AT 25MLL/HR, WILL CONTACT MD FOR ORDERS TO INCREASE AND FOR PLAN FOR TPN, BED IN LOWEST LOCKED POSITION, CALL LIGHT WITHIN REACH, SAFETY MEASURES IN PLACE. WILL CONTINUE TO MONITOR.
--- NOTE | 2020-07-26 08:00 | NUR ---
technician telecommunication systems note patient in bed with trach to vent setting as ordered, alert awake, able to follow simple command,on tele monitor hr 79 sr ,with abdominal dressing intact , ontpn as ordered via rt upper picc line line 79, lt upper mid line in place and flushed well , g tube in place with residual 10 ml at this time, bed in lowest and locked position, call light within reach, trach suction done,
--- NOTE | 2020-07-26 08:14 | NUR ---
RT RECEIVED PT TRACH VENT DEPENDENT WITH NOTED SETTINGS. RETURNED ITEM CLERK DONE AND TRACH IS SECURE. PT AWAKE AND ALERT, REF SX AT THIS TIME. VENT ALARMS CHECKED AND AUDIBLE. VENT PLUGGED IN RED OUTLET. AMBU BAG AND SPARE TRACH NOTED HOB. PT TOLERATING SETTINGS WELL. NO SOB OR RESP DISTRESS NOTED.
[2020-07-26] MEDS: PANTOPRAZOLE 40 MG VIAL IV SCH ×2 (08:17→22:15)
[2020-07-26] MEDS: HYDROCORTISONE SOD SUCCINATE 100 MG/2 ML VIAL IV SCH (08:17)
[2020-07-26 08:18] LABS: LYMPHOCYTES % (MANUAL) 6 % (16-48); MONOCYTES % (MANUAL) 3 % (0-11.0); NEUTROPHILS % (MANUAL) 91 (42-76)
[2020-07-26] MEDS: GABAPENTIN 300 MG CAPSULE PO SCH ×2 (08:18→16:35)
[2020-07-26] MEDS: FLUOXETINE HCL 20 MG CAPSULE PO SCH (08:18)
--- NOTE | 2020-07-26 08:35 | NUR ---
telemarketing fundraiser note k 2.9 dr ty notified stated that will order will f\u
[2020-07-26] MEDS: ACETAMINOPHEN 650 MG/SUPP.RECT RC PRN (08:37)
--- NOTE | 2020-07-26 08:49 | NUR ---
telephone exchange operator note dr haynes at bedside aware that no bm yet and ok to increase g tube feeding max dose 60 ml per hour , also aware that dressing with some drainage ok to cont tpn
[2020-07-26] MEDS: POTASSIUM CHLORIDE 20 MEQ POWDER PACKET NG SCH ×5 (09:15→13:56)
[2020-07-26] MEDS: Magnesium 1GM/D5W 100ML PREMIX 100 ML IV SCH ×2 (09:15→10:32)
--- NOTE | 2020-07-26 09:22 | NUR ---
telephone answerer note per dietary change g tube feeding max 45 ml per hour also dr schaeffer at bedside updated patient condition
[2020-07-26] MEDS ORDERED: diphenhydrAMINE HCL 50 MG/ML VIAL IV ONE ×2 (09:30→12:30)
[2020-07-26] MEDS ORDERED: ACETAMINOPHEN 325 MG TABLET PO ONE ×2 (09:30→12:30)
--- NOTE | 2020-07-26 09:30 | NUR ---
RN NOTE MD NOTIFIED OF K+ 2.9 AND Hg 7.7, PRBCs ORDERED FOR TODAY AND DIALYSIS NOTIFIED OF K+ 2.9
--- NOTE | 2020-07-26 09:30 | NUR ---
CARDIOPULMONARY TECHNOLOGIST NOTE UNABLE TO GIVE TYLENOL AND BENADRYL AT THIS TIME, BLOOD WAS NOT READY YET
--- NOTE | 2020-07-26 09:57 | NUR ---
telecommunication systems designer note called blood bank blood not ready to transfuse
[2020-07-26] MEDS ORDERED: TPN BAG #10 IV SCH (10:00)
--- NOTE | 2020-07-26 10:42 | NUR ---
HAT MODEL NOTE PER MANDY DNP GIVE BLOOD TRANSFUSION WITH HD, HD WILL START IN 1 HOUR ,WILL F\U
--- NOTE | 2020-07-26 11:11 | NUR ---
RN NOTE PEG TUBE RESIDUAL CHECKED. ZERO RESIDUAL NOTED, PATIENT TOLERATING ADVANCEMENT OF TUBE FEEDING WELL. NO BOWEL MOVEMENT YET, WILL CONTINUE TO MONITOR FOR ONE.
--- NOTE | 2020-07-26 12:33 | NUR ---
RN NOTE BLOOD TRANSFUSION STARTED BY HD NURSE ORDERED. CALLED DR HOGAN TO VERIFY ORDER FOR BLOOD. ONLY 1 UNIT.
--- NOTE | 2020-07-26 12:54 | NUR ---
RN NOTE SPOKE TO PHARMACY. GIVEN ORDER VIA MISCELLANEOUS ORDER AND PHONE CALL TO DECREASE TPN TO 50ML/HR SINCE PATIENT IS TOLERATING TUBE FEEDING WELL. NO RESIDUAL NOTED IN TUBE FEEDING.
[2020-07-26] MEDS ORDERED: [UNRECOGNIZED DRUG - REMARK] MC ONE (13:00)
--- NOTE | 2020-07-26 13:17 | NUR ---
telegraph printer mechanic note blood transfusion complected by hd nurse ,not in distress
--- NOTE | 2020-07-26 14:05 | NUR ---
RN NOTE HEMODIALYSIS COMPLETED, NO FLUID OUT, BP 88/41, HR 90, WILL CONTINUE TO MONITOR IT.
--- NOTE | 2020-07-26 15:09 | NUR ---
RN NOTE CHANGED LINENS AND CLEANED PATIENT WITH JOCELINE VILLASENOR. WHEN TURNED ON SIDE PATIENT SATURATIONS DROPPED TO 76%. PT WAS IMMEDIATELY PUT SUPINE WITH HOB ELEVATED. SAT THEN WENT BACK TO 93%. RT WAS NOTIFIED AND CAME TO ASSES PATIENT. PATIENT IS STABLE AND CLEAN NOW. ABD DRESSING CHANGED, DRESSING ON BACK OF HEAD CHANGED AND SACRAL DRESSING CHANGED. WOUNDS NOW CLEAN DRY AND INTACT.
--- NOTE | 2020-07-26 16:56 | NUR ---
RN NOTE CHECKED RESIDUAL FOR TUBE FEEDING. ZERO RESIDUAL NOTED.
--- NOTE | 2020-07-26 19:13 | NUR ---
telemarketing sales representative note per pharmacy ok to change tpn at 25 ml ml per hour , aware that g tube feeding at 40 ml per hour ,will increased at 45 ml as tolerated ,endorsed to next shift rn marcus
[2020-07-26] MEDS ORDERED: TPN BAG #10 IV PRN (19:14)
--- NOTE | 2020-07-26 19:32 | NUR ---
RN CLOSING NOTE PATIENT IN BED, VENT SETTINGS THE SAME, O2 SAT 96%, INTERMITTENT PAIN TREATED WITH REPOSITIONING AND MEDICATION, A/O X4, MOUTHS WORDS, NODS YES/NO, DRESSINGS CHANGED TODAY, DRESSINGS ARE CLEAN DRY AND INTACT, TOLERATING TUBE FEEDING, INCREASING ORDERED, AND DECREASING TPN ORDERED, R FEMORAL PIGTAIL FOR HD, R FA MIDLINE, L FA PICC LINE, INTACT PATENT CLEAN, INFUSIONS FLOW WELL. ENDORSED TO FACILITIES CLERK.
--- NOTE | 2020-07-26 20:01 | NUR ---
RT NOTE PT REC'D TRACH ON [facility] VENT ON AC MODE. PT SHOWS NO SIGNS OF RESP DISTRESS OR SOB. PT AWAKE AND ALERT. TRACH IS PATENT AND SECURED. PT SX'D FOR SMALL AMT OF PALE YELLOW SECRETIONS. ALARMS ARE SET AND AUDIBLE. VENT PLUGGED INTO RED OUTLET. AMBU BAG BEDSIDE. WILL CONTINUE TO MONITOR CLOSELY. Addendum: 07/26/20 at 2000 by CASSY WHITEHEAD RT Amended: Links added.
[2020-07-26] MEDS: CEFEPIME 1 GM in IV D5W 50 ML IV SCH (22:16)
[2020-07-27] VITALS: BP 146/74
[2020-07-27] MEDS ORDERED: TPN BAG #11 IV SCH ×2 (01:00→10:00)
[2020-07-27 04:00] VITALS: BP 138/63
[2020-07-27] MEDS: BLOOD SUGAR DIAGNOSTIC 1 EACH STRIP IN SCH ×3 (06:18→17:46)
[2020-07-27] MEDS: METOCLOPRAMIDE HCL 10 MG/2 ML VIAL IV SCH ×4 (06:18→22:34)
[2020-07-27] MEDS: INSULIN REGULAR, HUMAN 100 UNIT/ML 3 ML VIAL SQ PRN (06:19)
[2020-07-27 06:20] LABS: BASOPHILS % (AUTO) 0.1 % (0.0-2.0); EOSINOPHILS % (AUTO) 1.4 % (0.0-6.0); HEMATOCRIT 27 % (39-51); HEMOGLOBIN 8.7 g/dL (13.5-17.5); LYMPHOCYTES # (AUTO) 0.9 /CMM (0.8-4.8); LYMPHOCYTES % (AUTO) 4.1 % (20.0-44.0); MEAN CORPUSCULAR HGB CONC 32 g/dl (31.0-36.0); MEAN CORPUSCULAR VOLUME 92 fL (80-96); MONOCYTES # (AUTO) 1.8 /CMM (0.1-1.30); MONOCYTES % (AUTO) 8.2 % (2.0-12.0); NEUTROPHILS % (AUTO) 86.2 % (43.0-81.0); PLATELET COUNT (AUTO) 115 /CMM (150-450); RED BLOOD CELL COUNT(AUTO) 2.92 MIL/uL (4.5-6.0)
[2020-07-27 06:52] LABS: BILIRUBIN,TOTAL 1.1 mg/dL (0.2-1.0); CREATININE 1.8 mg/dL (0.6-1.3); MAGNESIUM 1.9 mg/dL (1.8-2.4); PHOSPHORUS 2.4 mg/dL (2.5-4.9); POTASSIUM 3.7 mmol/L (3.5-5.1); TOTAL PROTEIN, SERUM 4.2 g/dL (6.4-8.2)
[2020-07-27 06:54] LABS: ALBUMIN 1.3 g/dL (3.4-5.0)
--- NOTE | 2020-07-27 07:07 | NUR ---
RN notes Patient resting comfortably in bed with no distress noted. Breathing even and unlabored. Vent setting well tolerated. No complaint of pain or discomfort. Alert and oriented x 4. Able to communicate through mouth words, facial expression and eye movement. Vital signs wnl. Kept clean and dry. Will endorse to next shift for continuity of care.
--- NOTE | 2020-07-27 07:30 | NUR ---
RN OPENING NOTES RECEIVED PT IN BED, VENT SETTINGS THE SAME, O2 SAT 98%. A/O X4, MOUTHS WORDS, NODS YES/NO, DRESSINGS CHANGED TODAY, DRESSINGS ARE CLEAN DRY AND INTACT. GTD INTACT AND TOLERATING TUBE FEEDING WELL, INCREASING ORDERED. HOB KEPT ELEVATED FOR ASPIRATION PRECAUTION. R FEMORAL PIGTAIL FOR HD, R FA MIDLINE, L FA PICC LINE, INTACT PATENT CLEAN, INFUSIONS FLOW WELL. SFATYE PRECAUTIONS OBSERVED. WILL CONTINUE MONITOR.
--- NOTE | 2020-07-27 07:42 | NUR ---
DR MORRIS MADE AWARE OF PT REQUEST TO HAVE DILAUDID VIA IM INJECTION. PT IS COMPLAINING OF SEVERE PAIN, BUT NO IV ACCESS AT THIS TIME. AWAITING FOR PICC NURSE FOR MIDLINE INSERTION. MD ALSO AWARE OF INCREASED BP (202/120), WITH INSTRUCTIONS TO GIVE BP MEDS [place]. Addendum: 07/27/20 at 1120 by ZAC GAYLE RN CLARIFICATION OF DOCUMENTATION: PLS DISREGARD DOCUMENTATION ABOVE / WRONG PATIENT.
[2020-07-27 08:00] VITALS: BP 134/59
[2020-07-27] MEDS: GABAPENTIN 300 MG CAPSULE PO SCH ×2 (09:15→17:36)
[2020-07-27] MEDS: PANTOPRAZOLE 40 MG VIAL IV SCH ×2 (09:15→21:22)
[2020-07-27] MEDS: FLUOXETINE HCL 20 MG CAPSULE PO SCH (09:15)
[2020-07-27] MEDS: HYDROCORTISONE SOD SUCCINATE 100 MG/2 ML VIAL IV SCH (09:15)
--- NOTE | 2020-07-27 09:29 | NUR ---
WOUND CARE CONSULT: PT SEEN FOR RE-EVALUATION OF SACRAL INTACT DEEP TISSUE INJURY, PRESENT ON ADMISSION. WOUND CONTINUES TO BE INTACT. PT HAD LARGE AMOUNT OF BLACK LIQUID STOOL. RECOMMENDATIONS MADE FOR SKIN PROTECTION AND WOUND CARE. DISCUSSED WITH NURSING STAFF. PT CONTINUES TO HAVE DISCOLORED AREA TO LEFT POSTERIOR SCALP. NO DRAINAGE OR ERYTHEMA NOTED. PT NOTED TO BE RUBBING HIS HEAD ON THE PILLOW. FOAM DRESSING IN PLACE FOR PROTECTION. IN AGREEMENT WITH PLAN OF CARE. Addendum: 07/27/20 at 0932 by LANRE IYER WNDNU Amended: Links added.
[2020-07-27 09:39] LABS: BAND % (MANUAL) 2 % (0.0-5.0); LYMPHOCYTES % (MANUAL) 3 % (16-48); MONOCYTES % (MANUAL) 6 % (0-11.0); NEUTROPHILS % (MANUAL) 89 (42-76)
[2020-07-27 12:00] VITALS: BP 131/54
[2020-07-27] MEDS ORDERED: NEUTRA PHOS 1 POWD.PACKET GT ONE (13:30)
--- NOTE | 2020-07-27 15:00 | NUR ---
DR MON CAME TO SEE AND EXAMINE PT, WITH ORDERS TO D/C EVERY OTHER ABDOMINAL WOUND INCISION KIM. ORDERS NOTED AND CARRIED OUT. NO S/S OF INFECTION NOTED FROM ABDOMINAL WOUND INCISION.
[2020-07-27 16:00] VITALS: BP 118/52
--- NOTE | 2020-07-27 18:38 | NUR ---
RN CLOSING NOTES PATIENT REMAINS IN BED, ALERT AND AWAKE, ABLE TO COMMUNICATE WITH MOUTH WORDS, NODS YES/NO. VENT SETTINGS THE SAME, O2 SAT 96%, INTERMITTENT PAIN TREATED WITH REPOSITIONING AND MEDICATION, ABDOMINAL INCISION WOUND KIM INTACT WITH NO SIGNS AND SYMPTOMS OF INFECTION. EVERY OTHER KIM REMOVED ORDERED BY DR MON. DRESSINGS ARE CLEAN DRY AND INTACT, GTF INTACT AND INFUSING WELL. R FEMORAL PIGTAIL FOR HD, R FA MIDLINE, L FA PICC LINE, INTACT PATENT CLEAN, INFUSIONS FLOW WELL. WILL ENDORSE TO NEXT SHIFT FOR INES. Addendum: 07/27/20 at 1920 by ZAC GAYLE RN 10 KIM REMOVED FROM ABDOMINAL INCISION, THEN COVERED WITH DRY DRESSING.
--- NOTE | 2020-07-27 19:12 | NUR ---
RN NOTE PATIENT AWAKE IN BED IN SEMI BA'S POSITION. ABLE TO MAKE NEEDS KNOWN BY NODDING HEAD AND MOUTHING WORDS. WITH TRACH CONNECTED TO VENT AND TOLERATING SETTINGS WELL. TRACH MID LINE AND IN PLACE. RESPIRATIONS EVEN AND UNLABORED. DENIES PAIN OR DISCOMFORT AT THIS TIME. PT SUCTIONED VIA TRACH AND ORAL. SR VIA AUTOMATIC DRILLER AND REAMER. ABDOMINAL INCISION DRESSING INTACT WITHOUT SIGNS OF BLEEDING OR COMPLICATIONS. GT WITH TUBE FEEDING RUNNING ORDERED. PLACEMENT VERIFIED VIA AUSCULTATION. NO GASTRIC RESIDUAL NOTED. FLUSHED AND PATENT. IV LINES FLUSHED AND INTACT WITHOUT SIGNS OF COMPLICATIONS AT SITES. HD CATH PATENT AND INTACT. CALL LIGHT WITHIN REACH, SAFETY MEASURES IN PLACE, BED LOCKED AND IN LOWEST POSITION. WILL MONITOR PATIENT. Addendum: 07/27/20 at 2001 by KENIA RIVER RN GABRIEL CATHETER PATENT AND IN PLACE DRAINING CLEAR AIMEE COLORED URINE.
--- NOTE | 2020-07-27 19:25 | NUR ---
RN OPENING NOTES: RECEIVED PT FROM KENIA RN -PT AWAKE IN BED RESTING COMFORTABLY. PATIENT IN NO S/SX OF ACUTE DISTRESS AT THIS TIME. NO SOB NOTED. PATIENT'S BREATHING IS EVEN AND UNLABORED. PATIENT ON MECHANICAL VENT; SETTINGS PRESCRIBED; PT TOLERATED WELL. AMBU BAG AT BED SIDE ALARMS SET PER PROTOCOL AND AUDIBLE. VENT PLUGGED IN TO RED OUTLET. NO DISTRESS NOTED. PATIENT NOTED TO HAVE ABDOMINAL INCISION WITH DRESSING INTACT WITHOUT SIGNS OF BLEEDING OR COMPLICATIONS. GT WITH TUBE FEEDING RUNNING ORDERED (NEPRO @45ML/HR; PT TOLERATES WELL. PLACEMENT VERIFIED VIA AUSCULTATION. NO GASTRIC RESIDUAL NOTED. FLUSHED AND PATENT. NOTED IV SITE ON THE FOLLOWING; L UAM, R UA PICC LINE AND R FEM HD CATH ALL PATENT, INTACT AND FLUSHING WELL; NO S/S OF INFECTION OR INFILTRATION. GABRIEL CATH IN PLACE,WITH MODERATE URINE OUTPUT. SAFETY MEASURES HAVE BEEN PROVIDED AND IMPLEMENTED. PATIENT BED ALARM IS ON. HEAD OF BED ELEVATED. BED IS LOCKED, IN LOWEST POSITION AND SIDE RAILS UP. CALL LIGHT WITHIN REACH OF THE PATIENT. APPLICABLE ISOLATION PRECAUTIONS IN PLACE. WILL CONTINUE TO MONITOR AND REASSESS FOR ANY CHANGES AND WILL CARRY OUT ANY ONGOING AND ACTIVE MD ORDER. Addendum: 07/28/20 at 0225 by ANGELICA RICHARDS RN CORRECTION TO THE TIME OF RECEIVED -[id number]
[2020-07-27 20:00] VITALS: BP 128/48
--- NOTE | 2020-07-27 20:42 | NUR ---
RN NOTE RT AT BEDSIDE PROVING SUCTIONING VIA TRACH.
[2020-07-27] MEDS: CEFEPIME 1 GM in IV D5W 50 ML IV SCH (21:22)
--- NOTE | 2020-07-27 21:55 | NUR ---
RN NOTE SPOKE TO DIDIER () ON THE PHONE. GAVE UPDATE ON PT'S STATUS AND PLAN OF CARE. VERBALIZED UNDERSTANDING.
--- NOTE | 2020-07-27 22:46 | NUR ---
RN NOTE REPORT GIVEN TO SOFI ORTIZ FOR CONTINUATION OF CARE.
[2020-07-28] VITALS: BP 105/50
[2020-07-28] MEDS: BLOOD SUGAR DIAGNOSTIC 1 EACH STRIP IN SCH ×5 (00:17→23:00)
[2020-07-28] MEDS: INSULIN REGULAR, HUMAN 100 UNIT/ML 3 ML VIAL SQ PRN ×2 (00:18→05:26)
--- NOTE | 2020-07-28 01:00 | NUR ---
RN NOTES NO CHANGE IN PATIENT CONDITION AT THIS TIME PATIENT VITALS STABLE, NO SIGNS OF ACUTE RESPIRATORY DISTRESS. DYE TUB OPERATOR MADE AWARE. WILL CONTINUE TO MONITOR AND REASSESS FOR ANY CHANGES THROUGHOUT THE SHIFT.
[2020-07-28 04:00] VITALS: BP 121/48
--- NOTE | 2020-07-28 04:00 | NUR ---
RN NOTES NO NOTED CHANGES TO PATIENT CONDITION/STATUS. SAFETY DEPOSIT SUPERVISOR MADE AWARE. WILL CONTINUE TO MONITOR AND REASSESS FOR ANY CHANGES THROUGHOUT THE SHIFT.
[2020-07-28] MEDS: MORPHINE SULFATE INJ 2 MG/ML DISP.SYRIN IV PRN ×2 (04:53→10:07)
[2020-07-28] MEDS: METOCLOPRAMIDE HCL 10 MG/2 ML VIAL IV SCH ×4 (05:07→23:00)
[2020-07-28 06:10] LABS: BASOPHILS % (AUTO) 0.1 % (0.0-2.0); EOSINOPHILS % (AUTO) 1.3 % (0.0-6.0); HEMATOCRIT 27 % (39-51); HEMOGLOBIN 8.6 g/dL (13.5-17.5); LYMPHOCYTES # (AUTO) 0.9 /CMM (0.8-4.8); LYMPHOCYTES % (AUTO) 4.5 % (20.0-44.0); MEAN CORPUSCULAR HGB CONC 32 g/dl (31.0-36.0); MEAN CORPUSCULAR VOLUME 93 fL (80-96); MONOCYTES # (AUTO) 1.8 /CMM (0.1-1.30); MONOCYTES % (AUTO) 8.8 % (2.0-12.0); NEUTROPHILS # (AUTO) 17.3 /CMM (1.8-8.9); NEUTROPHILS % (AUTO) 85.3 % (43.0-81.0); PLATELET COUNT (AUTO) 145 /CMM (150-450); RED BLOOD CELL COUNT(AUTO) 2.85 MIL/uL (4.5-6.0); WHITE BLOOD COUNT (AUTO) 20.3 K/uL (4.3-11.0)
[2020-07-28] MEDS: NEPRO 1,000 ML BOTTLE GT PRN (06:13)
[2020-07-28 06:49] LABS: CALCIUM, SERUM 7.5 mg/dL (8.5-10.1); CREATININE 2.1 mg/dL (0.6-1.3); MAGNESIUM 1.9 mg/dL (1.8-2.4); PHOSPHORUS 3.7 mg/dL (2.5-4.9); POTASSIUM 3.7 mmol/L (3.5-5.1)
--- NOTE | 2020-07-28 07:25 | NUR ---
RN CLOSING NOTE: PATIENT REMAINS IN ROOM. NO SIGNS OF RESPIRATORY DISTRESS. SAFETY MEASURES IMPLEMENTED, BED IN LOWEST POSITION, LOCKED, SIDE RAILS UP, CALL LIGHT WITHIN REACH. ALL NEEDS AND ORDERS ADDRESSED DURING THE SHIFT. ALL DUE MEDS GIVEN ORDERED & SCHEDULED ; PATIENT TOLERATED WELL.PATIENT KEPT CLEAN AND COMFORTABLE WITHIN THE SHIFT. ENDORSED TO INCOMING SHIFT RN FOR CONTINUITY OF CARE.
--- NOTE | 2020-07-28 07:40 | NUR ---
RN OPENING NOTE: PATIENT REMAINS IN ROOM. PT IS ON MECH VENT ORDERED.NO SIGNS OF RESPIRATORY DISTRESS. ELAINE MIDLINE IS FLUSHING WELL NO INFILTRATION OR S/S OF INFECTION. R FEM HD CATH IS IN PLACE.SHITAL PICCLINE IS INTACT. SAFETY MEASURES ARE IMPLEMENTED PER HOSPITAL POLICY, BED IS IN LOWEST POSITION, LOCKED, SIDE RAILS UP X2 , CALL LIGHT WITHIN REACH. WILL CONTINUITY OF CARE
[2020-07-28 08:00] VITALS: BP 123/55
[2020-07-28] MEDS: FLUOXETINE HCL 20 MG CAPSULE PO SCH (09:55)
[2020-07-28] MEDS: GABAPENTIN 300 MG CAPSULE PO SCH ×2 (09:55→16:25)
[2020-07-28] MEDS: PANTOPRAZOLE 40 MG VIAL IV SCH ×2 (09:55→21:10)
--- NOTE | 2020-07-28 10:36 | NUR ---
RN NOTES DIALYSIS NURSE UMAIR NEXT TO THE BED SITE
[2020-07-28 12:00] VITALS: BP 66/38
[2020-07-28 16:00] VITALS: BP 105/65
[2020-07-28] MEDS: CEFEPIME 2 GM in IV D5W 100 ML IV SCH (18:03)
--- NOTE | 2020-07-28 19:26 | NUR ---
RN CLOSING NOTE: PATIENT REMAINS IN ROOM. PT IS ON MECH VENT ORDERED.NO SIGNS OF RESPIRATORY DISTRESS. ELAINE MIDLINE IS FLUSHING WELL NO INFILTRATION OR S/S OF INFECTION. R FEM HD CATH IS IN PLACE.SHITAL PICCLINE IS INTACT. ALL NEEDS ARE MET AND MEDS ARE GIVEN SAFETY MEASURES ARE IMPLEMENTED PER HOSPITAL POLICY, BED IS IN LOWEST POSITION, LOCKED, SIDE RAILS UP X2 , CALL LIGHT WITHIN REACH. WILL ENDORSE TO DYE OPERATOR NURSE FOR CONTINUITY OF CARE
--- NOTE | 2020-07-28 19:35 | NUR ---
RN OPENING NOTES RECEIVED PT RESTING IN BED. A/O X 2. ORIENTED TO SELF AND SURROUNDINGS. PT IS ABLE TO MOUTH WORDS AND RESPOND TO YES OR NO QUESTIONS. ON TELEMETRY MONITORING, HR IS 81 AND IS NSR AT THIS TIME. PT IS TRACH/VENT. TOLERATING SETTINGS WELL. PORTEX 6, AC 20, TV 500, FIO2 30% AND PEEP 0. SATURATING WELL AT 94% NO SIGNS OF RESPIRATORY DISTRESS OR DIFFICULTY BREATHING. PT DENIES PAIN AT THIS TIME. PT HAS GENERALIZED EDEMA ON BUE AND BLE. PT HAS GTUBE IN PLACE. AUSCULTATED TO CONFIRM PLACEMENT. FLUSHED AND PATENT. RESIDUALS CHECKED, LESS THAN 5CC NOTED. HAS NEPRO @ 45ML/HR RUNNING. PT HAS ABD INCISION AND DRESSING IS CLEAN DRY AND INTACT. PT HAS ELAINE MIDLINE AND SHITAL PICC LINE, BOTH LINES FLUSHED WITH ASEPTIC TECHNIQUE USED. PT HAS GABRIEL CATHETER. DRAINING YELLOW URINE. SAFETY MEASURES IN PLACE. HOB ELEVATED. BED IS LOCKED IN LOWEST POSITION WITH BED ALARM ON. CALL LIGHT WITHIN REACH. WILL CONTINUE TO MONITOR.
--- NOTE | 2020-07-28 19:40 | NUR ---
AIMEE URINE NOTED, UPON OBSERVATION DRAINING INTO GABRIEL CATHETER WILL CONTINUE TO MONITOR..
[2020-07-28 20:00] VITALS: BP 105/60
[2020-07-29] VITALS (31 sets, daily range): BP systolic 59–135; BP diastolic 30–61
--- NOTE | 2020-07-29 00:30 | NUR ---
PT IS CURRENTLY RESTING, COOPERATIVE WITH CARE. DENIES PAIN AT THIS TIME. REPOSITIONED Q2H. WILL CONTINUE TO MONITOR.
--- NOTE | 2020-07-29 02:32 | NUR ---
PT HAD ONE DARK BROWN SOFT BM, HX OF POSITIVE STOOL OB. WILL CONTINUE TO MONITOR.
--- NOTE | 2020-07-29 02:51 | NUR ---
BED BATH PERFORMED, ABDOMINAL PAD CLEAN DRY AND INTACT. MEPILEX APPLIED TO SACRUM.
[2020-07-29] MEDS: BLOOD SUGAR DIAGNOSTIC 1 EACH STRIP IN SCH ×3 (05:53→16:53)
[2020-07-29] MEDS: METOCLOPRAMIDE HCL 10 MG/2 ML VIAL IV SCH ×3 (05:53→16:35)
[2020-07-29 07:08] LABS: BASOPHILS % (AUTO) 0.1 % (0.0-2.0); HEMATOCRIT 22 % (39-51); HEMOGLOBIN 7.1 g/dL (13.5-17.5); LYMPHOCYTES # (AUTO) 1.1 /CMM (0.8-4.8); LYMPHOCYTES % (AUTO) 6.5 % (20.0-44.0); MEAN CORPUSCULAR HGB CONC 33 g/dl (31.0-36.0); MEAN CORPUSCULAR VOLUME 94 fL (80-96); MONOCYTES # (AUTO) 1.4 /CMM (0.1-1.30); MONOCYTES % (AUTO) 8.4 % (2.0-12.0); NEUTROPHILS # (AUTO) 14.5 /CMM (1.8-8.9); PLATELET COUNT (AUTO) 152 /CMM (150-450); RED BLOOD CELL COUNT(AUTO) 2.31 MIL/uL (4.5-6.0); WHITE BLOOD COUNT (AUTO) 17.3 K/uL (4.3-11.0)
--- NOTE | 2020-07-29 07:25 | NUR ---
RN CLOSING NOTES PT IS RESTING IN BED. NO SIGNIFICANT CHANGES ON MY SHIFT. PT REMAINS ON SAME VENT SETTINGS, NO CHANGES. PT WAS SUCTIONED AND TOLERATED IT. PT IS ALERT AND AWARE OF SELF AND SURROUNDINGS. DENIES PAIN AT THIS TIME. AFEBRILE. STILL ON TUBE FEEDING OF 35ML/HR. HOB ELEVATED 40 DEGREES. BED IS LOCKED IN LOWEST POSITION WITH BED ALARM ON. CALL LIGHT WITHIN REACH. ENDORSED TO ONCOMING NURSE FOR CONTINUATION OF CARE.
[2020-07-29 07:49] LABS: CALCIUM, SERUM 7.5 mg/dL (8.5-10.1); MAGNESIUM 1.7 mg/dL (1.8-2.4); PHOSPHORUS 3.6 mg/dL (2.5-4.9); POTASSIUM 3.7 mmol/L (3.5-5.1)
--- NOTE | 2020-07-29 08:00 | NUR ---
TELE R NOTE PATIENT IN BED ALERT AWAKE WITH TRACH TO VENT SETTING ORDERED ON TELE MONITOR SR HR 88 , WITH GABRIEL CATH TO GRAVITY WITH AIMEE COLOR URINE, ON TUBE FEEDING ORDERED AT 45 ML PER HOUR TOLERATED WELL, KEEP HOB ELEVATED AT ALL TIME TRACH AND ORAL CARE DONE , WITH INCISION ON MID ABDOMEN INTACT WITH KIM IN PLACE, NO DRAINAGE NOTED AT THIS TIME STILL WITH SWELLING UPPER AND LOWER EXTREMITIES AND SCROTUM, KEEP ELEVATED TOLERATED, WILL MONITOR
[2020-07-29] MEDS: PANTOPRAZOLE 40 MG VIAL IV SCH ×2 (08:06→21:33)
[2020-07-29] MEDS: GABAPENTIN 300 MG CAPSULE PO SCH ×2 (08:06→16:14)
[2020-07-29] MEDS: FLUOXETINE HCL 20 MG CAPSULE PO SCH (08:07)
--- NOTE | 2020-07-29 10:59 | NUR ---
ASSOCIATE DIRECTOR OF NURSING NOTE BLOOD READY WILL GUERO DONE WITH HD IN 1 HOUR
[2020-07-29] MEDS ORDERED: ALBUMIN 25% 25 GM in PREMIX 1 EA IV ONE (11:00)
[2020-07-29] MEDS ORDERED: IV NS 0.9% 500 ML IV ONE (11:00)
--- NOTE | 2020-07-29 11:00 | NUR ---
CREDIT PROCESSOR NOTE BP 66/34 MANDY DNP NOTIFIED WITH ORDER TO GIVE BOLUS 500 ML OF NS AND ALBUMIN, WILL F\U
[2020-07-29] MEDS: NEPRO 1,000 ML BOTTLE GT PRN (11:22)
[2020-07-29] MEDS ORDERED: Magnesium 1GM/D5W 100ML PREMIX 100 ML IV SCH (11:30)
--- NOTE | 2020-07-29 12:00 | NUR ---
CERTIFIED DIABETES EDUCATOR NOTE UNABLE TO CHANGE POSITION PATIENT IS HEMODYNAMICALLY NOT STABLE, BP IS LOW, WILL CONT TO MONITOR
--- NOTE | 2020-07-29 12:03 | NUR ---
MANAGER SUPPORT NOTE BP 81/34 HD STARTED, ALBUMIN ADMINISTERING BLOOD TRANSFUSION WILL BE DINE BY HD NURSE
--- NOTE | 2020-07-29 12:29 | NUR ---
TIN BLUM BP 93/43 WILL MONITOR Addendum: 07/29/20 at 1347 by FRANCOIS KEMP RN 1229 blood transfusion done by hd nurse ,no adverse reaction noted Addendum: 07/29/20 at 1355 by FRANCOIS KEMP RN per ti butt to place dvt pumps
--- NOTE | 2020-07-29 14:44 | NUR ---
telephone interceptor operator note hd completed 1l of fluids out bp 80/34
--- NOTE | 2020-07-29 15:23 | NUR ---
telecommunications engineer note dr Patel wall cleaner notified that bp now 85/40 no new order given at these time aware that earlier bp was 73/34, 500 ml bolus was given and albumin, will cont to monitor
--- NOTE | 2020-07-29 15:27 | NUR ---
fio2 increased from 30% to 40% fio2 due to 88% spo2. rn notified on vent changes. Addendum: 07/29/20 at 1527 by JUANITA MULLINS RT Amended: Links added.
[2020-07-29] MEDS: ACETAMINOPHEN 650 MG/20.3 ML UDC GT PRN (15:29)
--- NOTE | 2020-07-29 15:32 | NUR ---
PIPE CHANGER NOTE C\O PAIN IN ABDOMEN 6\10 ,TYLENOL VIA G TUBE GIVEN, ALSO SATURATION 88% PER RT FIO2 INCREASED 40% WILL MONITOR ,CHANGED DRESSING ON ABDOMEN AND EVERY OTHER KIM REMOVED ,KEEP CLEAN DRY
--- NOTE | 2020-07-29 15:37 | NUR ---
STRIKE OFF MACHINE OPERATOR NOTE STILL CANT REPOSITION ON SIDE ,BP 85/40 SATURATION 87%
--- NOTE | 2020-07-29 16:30 | NUR ---
HEAD BOYS TENNIS COACH NOTE DR DAHL IT RISK AND ASSURANCE MANAGER NOTIFIED THAT BP WAS EARLIER 85/35 NO NEW ORDER GIVEN AT THIS TIMER
[2020-07-29] MEDS: CEFEPIME 2 GM in IV D5W 100 ML IV SCH (17:05)
--- NOTE | 2020-07-29 17:16 | NUR ---
public safety telecommunicator note bp 92/45 saturation 92% fio2 40% on vent setting , called Lucio ryan with order 250 bolus of ns ,chest x [place] tomorrow, order carried out
[2020-07-29] MEDS ORDERED: IV NS 0.9% 250 ML IV ONE (17:30)
--- NOTE | 2020-07-29 17:30 | NUR ---
fio2 increased to 50% due to 92% spo2 Addendum: 07/29/20 at 1730 by JUANITA MULLINS RT Amended: Links added.
--- NOTE | 2020-07-29 17:38 | NUR ---
telehealth director note 02 fi02 50% at this time saturation 93%, rt at bedside, abg doing now, will f\u
[2020-07-29 17:51] LABS: ABG BASE EXCESS -0.1 mmol/L; ABG OXYGEN SATURATION 94.3 % (92.0-98.5); ABG PCO2 29.9 mmHg (35.0-45.0); ABG PH 7.498 (7.350-7.450); ABG PO2 74.5 mmHg (75.0-100.0); AaDO2 248.4 mmHg; COHb 3.4 % (0.5-1.5); O2Hb 88.3 % (94.0-97.0); PEEP,BG 0 cm H2O; SITE, ABG Right Radial; VT, ABG 500 mL
--- NOTE | 2020-07-29 18:10 | NUR ---
television and radio repairer note dr woods notified that per rt fio2 50% saturation 94% abg result given to dr woods ,no new order at this time cont on fio2 50% setting ,will cont to monitor
--- NOTE | 2020-07-29 18:30 | NUR ---
SALES FORCE ADMINISTRATOR NOTE BP RECHECK STILL LOW BP 66/35 BOLUS 250 ML GIVEN CALLED TO MANDY ONEAL LFT A MESSAGE
--- NOTE | 2020-07-29 18:40 | NUR ---
PRIZE FIGHTER NOTE MANDY DNP CALLED BACK AWARE PATIENT CONDITION AND BP OK TO TRANSFER TO ICU FOR LEVOPHED TO START ORDER CARRIED OUT
--- NOTE | 2020-07-29 18:45 | NUR ---
VP INFORMATICS NOTE BP RECHECK 61/35 WILL ARE GOING TO TRANSFER TO ICU ,REPORT GIVEN TO DIETER FARAH
[2020-07-29] MEDS ORDERED: NOREPINEPHRINE 8 MG in IV NS 0.9% 242 ML IV PRN (19:00)
--- NOTE | 2020-07-29 19:00 | NUR ---
1900 TRANSFERRED TO ICU ON ACLS PROTOCOL, PATIENT AWAKE AND RESPONSIVE TO VERBAL STIMULI. NO SIGNS OF DISTRESS. TRANSFERRED TO ROOM 258.
--- NOTE | 2020-07-29 19:05 | NUR ---
BEHAVIORAL HEALTH CARE COORDINATOR OPENING NOTE PT ARRIVED VIA GURNEY FROM [facility]/TELE. VITALS ON ARRIVAL FOLLOWS: HR 85 BP 86/38 RR 21 O2 SAT 96%.
[2020-07-29] MEDS ORDERED: NOREPINEPHRINE 4 MG/4 ML AMPUL IV ONE (19:23)
--- NOTE | 2020-07-29 19:45 | NUR ---
JOURNEYMAN POWER PLANT OPERATOR OPENING NOTE RECEIVED PT FROM [facility]. AWAKE, ALERT. ABLE TO OPEN EYES. NONVERBAL. TRACH TO VENT. SETTINGS; PORTEX 6 AC 20 TV 500. FIO2 50. PEEP OF 0. PATIENT TOLERATING SETTINGS WELL. NO S/S OF RESPIRATORY DISTRESS OR DIFFICULTY BREATHING AT THIS TIME. ON MONITOR PRESENTS WITH NSR HR OF 81 AT THIS TIME. IV LINES SHITAL PICC AND ELAINE MIDLINE BOTH FLUSHED ASEPTIC TECHNIQUE USED. RIGHT FEMORAL HD CATH NOTED. AT THIS TIME PT DENIES PAIN. PT HAS G TUBE, FLUSHED AND PATENT. PT IS ON BED REST, WITH EDEMA NOTED ON BLE/BUE AND SCROTUM. AUSCULTATED TO CONFIRM PLACEMENT. HOB ELEVATED. BED IS LOCKED IN LOWEST POSITION. WITH CALL LIGHT WITHIN REACH. WILL CONTINUE TO MONITOR.
[2020-07-29] MEDS: NOREPINEPHRINE 32 MG in IV NS 0.9% 218 ML IV PRN ×2 (19:50→19:52)
--- NOTE | 2020-07-29 19:50 | NUR ---
PT STARTED ON LEVOPHED, AT THIS TIME BP IS 59/31 HR 88 SPO2 95% RR 20. STARTING DOSE 0.1MCG/KG/MIN TITRATING PER PROTOCOL.
[2020-07-30] VITALS (97 sets, daily range): BP systolic 53–193; BP diastolic 36–92
--- NOTE | 2020-07-30 | NUR ---
BLOOD SUGAR AT THIS TIME IS 92.
[2020-07-30] MEDS: METOCLOPRAMIDE HCL 10 MG/2 ML VIAL IV SCH ×4 (00:02→18:46)
[2020-07-30] MEDS: BLOOD SUGAR DIAGNOSTIC 1 EACH STRIP IN SCH ×4 (00:02→18:46)
[2020-07-30] MEDS: ACETAMINOPHEN 650 MG/20.3 ML UDC GT PRN ×2 (00:20→21:32)
--- NOTE | 2020-07-30 00:25 | NUR ---
PT NOTED TO HAVE A TEMP OF 102.[address], BLANKETS OFF. ICE PACKS IN AXILLARY AND GROIN. COLD TOWEL ON HEAD AND ADMINISTERED PRN TYLENOL FOR FEVER. PT DENIES PAIN AT THIS TIME. WILL REASSESS AND CONTINUE TO MONITOR.
--- NOTE | 2020-07-30 01:34 | NUR ---
TEMP REASSESSED. 99.3 AT THIS TIME
[2020-07-30 05:05] LABS: CALCIUM, SERUM 7.8 mg/dL (8.5-10.1); MAGNESIUM 1.9 mg/dL (1.8-2.4); POTASSIUM 3.9 mmol/L (3.5-5.1)
--- NOTE | 2020-07-30 05:35 | NUR ---
PREVIOUS GABRIEL CATHETER CAME OUT, INSERTED NEW GABRIEL USING STERILE TECHNIQUE.
--- NOTE | 2020-07-30 07:05 | NUR ---
RN NOTE RECEIVED PT ON BED, AWAKE, ALERT. ABLE TO OPEN EYES. NONVERBAL. FOLLOWS SIMPLE COMMAND, VENT/TRACH DEPENDENT , TOLERATING CURRENT VENT SETTING WELL, NO DISTRESS NOTED, ON MONITOR SR -ST , ON LEVO DRIP FOR BP SUPPORT AT .5MCG/KG/MIN AT THIS TIME, IV LINES R UA PICC AND L UA MIDLINE AND RIGHT FEMORAL HD CATH SITE CLEAN ,DRY AND INTACT , PT HAS G TUBE, FLUSHED AND PATENT WITH NEPHRO AT 45CC/HR RUNNING , EDEMA NOTED ON BLE/ BUE AND SCROTUM. HOB ELEVATED. BED IS LOCKED IN LOWEST POSITION. WITH CALL LIGHT WITHIN REACH. WILL CONTINUE TO MONITOR.
[2020-07-30] MEDS: NOREPINEPHRINE 32 MG in IV NS 0.9% 218 ML IV PRN ×2 (07:32→16:25)
--- NOTE | 2020-07-30 07:44 | NUR ---
ELECTRONIC COMPONENT PROCESSOR CLOSING NOTES PT IS CURRENTLY RESTING IN BED. NO CHANGES TO VENT SETTING TOLERATING WELL. SATURATING AT 98% AT THIS TIME. STILL RECEIVING 0.5MCG/KG/MIN ON LEVOPHED ON RIGHT PICC. CURRENTLY SINUS TACHY HEART RATE OF 115. PT WAS SEEN BY DR CONSTANTINO, INQUIRED ABOUT HEART RATE, DR SAID HE WILL FOLLOW UP. PT HAS GENERALIZED EDEMA PITTING 3+ ON BUE AND BLE. EDEMATOUS SCROTUM NOTED. SCROTUM DTI NOTED UPON BED BATH , LEFT LEG SKIN TEAR NOTED. BOTH HAD PICTURES TAKEN AND WITH PICTURES AND PLACED IN CHART. G TUBE FLUSHED. LAST RESIDUAL NOTED WAS 20CC. STABLE BLOOD GLUCOSE LEVEL NO COVERAGE NEEDED. IV SITES SHITAL PICC AND ELAINE MIDLINE BOTH FLUSHED ASEPTICALLY. PT HAD ONE SOFT BROWN FORMED STOOL DURING BED BATH. WOUND CARE PERFORMED ORDERED. ABDOMINAL DRESSING CLEAN DRY AND INTACT. TURNED AND REPOSITIONED TOLERATED. SAFETY MEASURES IMPLEMENTED. HOB ELEVATED 40 DEGREES. BED IS LOCKED IN LOWEST POSITION WITH BED ALARM ON. CALL LIGHT WITHIN REACH. ENDORSED TO AM NURSE FOR CONTINUATION OF CARE.
--- NOTE | 2020-07-30 07:58 | NUR ---
RT PATIENT REC'D TRACHED ON [facility] VENT WITH ORDERED SETTINGS GAURAV WELL. AMBU BAG AT [facility]. PATIENT APPEARS COMFORTABLE AND IN NO DISTRESS. Addendum: 07/30/20 at 0933 by CHANG CHOWDHURY RT Amended: Links added.
[2020-07-30 08:31] LABS: BASOPHILS # (AUTO) 0.1 /CMM (0.0-0.2); BASOPHILS % (AUTO) 0.4 % (0.0-2.0); HEMATOCRIT 37 % (39-51); HEMOGLOBIN 11.9 g/dL (13.5-17.5); LYMPHOCYTES # (AUTO) 0.8 /CMM (0.8-4.8); LYMPHOCYTES % (AUTO) 4.4 % (20.0-44.0); MEAN CORPUSCULAR HGB CONC 32 g/dl (31.0-36.0); MEAN CORPUSCULAR VOLUME 95 fL (80-96); MONOCYTES # (AUTO) 0.6 /CMM (0.1-1.30); MONOCYTES % (AUTO) 3.4 % (2.0-12.0); NEUTROPHILS # (AUTO) 16.7 /CMM (1.8-8.9); NEUTROPHILS % (AUTO) 91.8 % (43.0-81.0); PLATELET COUNT (AUTO) 261 /CMM (150-450); RED BLOOD CELL COUNT(AUTO) 3.89 MIL/uL (4.5-6.0); WHITE BLOOD COUNT (AUTO) 18.2 K/uL (4.3-11.0)
[2020-07-30] MEDS: GABAPENTIN 300 MG CAPSULE PO SCH ×2 (08:43→18:46)
[2020-07-30] MEDS: PANTOPRAZOLE 40 MG VIAL IV SCH ×2 (08:43→21:30)
[2020-07-30] MEDS: FLUOXETINE HCL 20 MG CAPSULE PO SCH (08:43)
--- NOTE | 2020-07-30 09:15 | NUR ---
WOUND CARE CONSULT: PT SEEN FOR SCROTAL AREA AND NOTED TO HAVE PROFOUND SCROTAL EDEMA WITH DISCOLORED AREA TO BASE OF PENIS. THERE IS A DISCOLORED AREA TO RT LATERAL LOWER LEG WITH TIGHT SHINY SKIN AND EDEMA. SACRAL DEEP TISSUE INJURY REMAINS INTACT. RECOMMENDATIONS MADE FOR SKIN PROTECTION. DISCUSSED WITH NURSING STAFF. MD IN AGREEMENT WITH PLAN OF CARE. [facility] Addendum: 07/30/20 at 0917 by LANRE IYER WNDNU Amended: Links added.
[2020-07-30] MEDS: PHENYLEPHRINE 50 MG in IV NS 0.9% 245 ML IV PRN ×4 (10:03→23:45)
--- NOTE | 2020-07-30 11:00 | NUR ---
RN NOTES TELEPHONE CONSENT OBTAINED FROM PT DAUGHTER FOR US GUIDED THORACENTESIS .
--- NOTE | 2020-07-30 12:41 | NUR ---
RN NOTES REPORT GIVEN TO CAIO FARAH FOR CONTINUITY OF CARE .
--- NOTE | 2020-07-30 17:11 | NUR ---
DIALYSIS STARTED AT 1540, ALL MEDS HELD UNTIL AFTER DIALYSIS
[2020-07-30] MEDS: HYDROCORTISONE SOD SUCCINATE 100 MG/2 ML VIAL IV SCH (18:46)
[2020-07-30] MEDS: VANCOMYCIN 1 GM in IV D5W 250ml IV SCH (18:46)
--- NOTE | 2020-07-30 19:00 | NUR ---
Patient remains on Charles at 3mcg and levo at 0.1 s/p HD. Patient is tolerating vent setting well and trach is clean dry and intact. Right upper arm PICC line is clean dry intact and patent with pressor infusing. Peg is clean dry intact and patent with tube feeding with 0 residuals noted. Bed in low lock position with rials up x 2. call light within reach and all safety measures ensured and carried out. will continue to monitor.
--- NOTE | 2020-07-30 19:30 | NUR ---
END OF SHIFT NOTE: ASSUMED CARE OF PATIENT AT 1240, PARACENTESIS IN PROGRESS. 950ML REMOVED DURING PARACENTESIS. DIALYSIS STARTED AT 1540, ENDED AT 1800. 800 ML OFF DURING DIALYSIS. VEL-SYNEPHRINE GTT INFUSING AT 3MCG/KG/MIN. LEVOPHED GTT STARTED DURING DIALYSIS, HIGHEST WAS 0.14 MCG/KG/MIN, CURRENTLY INFUSING AT 0.1 MCG/KG/MIN. PT ALERT, OX3 ABLE TO COMMUNICATE NEEDS. PT CHECKED ON HOURLY AND PRN BY NURSING STAFF.
[2020-07-30] MEDS: MORPHINE SULFATE INJ 4 MG/ML DISP.SYRIN IV PRN (19:33)
[2020-07-30] MEDS: MEROPENEM 1 G in IV NS 0.9% 100 ML IV SCH (20:28)
--- NOTE | 2020-07-30 21:53 | NUR ---
RECEIVED PT TRACHED ON VENT. PORTEX 6. PT IS AWAKE NO RESP DISTRESS. PT TOLERATING VENT SETTINGS. SX'D SML AMT FO THIN WHITE SECRETIONS. VENT ALARMS SET AND AUDIBLE. WILL CONTINUE TO MONITOR. Addendum: 07/30/20 at 2155 by LISA SHAW RT Amended: Links added.
[2020-07-30 23:59] LABS: BILIRUBIN,URINE MODERATE (NEGATIVE); BLOOD, URINE LARGE Ery/uL (NEGATIVE); COLOR,URINE DARK YELLOW (YELLOW); LEUKOCYTE ESTERASE ,URINE SMALL (NEGATIVE); NITRITE, URINE POSITIVE (NEGATIVE); PH,URINE 5.5 (5.0-8.0); PROTEIN,URINE 100 mg/dl (NEGATIVE); UGLUCOSE NEGATIVE (NEGATIVE); UROBILINOGEN,URINE 0.2 EU/dL (0.2)
[2020-07-31] VITALS (72 sets, daily range): BP systolic 37–147; BP diastolic 20–88
[2020-07-31] MEDS: METOCLOPRAMIDE HCL 10 MG/2 ML VIAL IV SCH ×3 (00:05→13:16)
[2020-07-31] MEDS: BLOOD SUGAR DIAGNOSTIC 1 EACH STRIP IN SCH ×3 (00:05→12:00)
[2020-07-31] MEDS: HYDROCORTISONE SOD SUCCINATE 100 MG/2 ML VIAL IV SCH ×2 (00:05→08:33)
[2020-07-31] MEDS: INSULIN REGULAR, HUMAN 100 UNIT/ML 3 ML VIAL SQ PRN ×2 (00:19→06:35)
[2020-07-31 00:29] LABS: BACTERIA,URINE 2+ /HPF (None Seen); RBC,URINE TOO NUMEROUS TO COUN /HPF (0-2); SQUAMOUS EPITHELIAL CELL,UR Few /HPF (None Seen); WBC,URINE 21-50 /HPF (0-3)
[2020-07-31 00:30] LABS: URINE AMORPHOUS URATE Moderate /HPF (None Seen)
[2020-07-31] MEDS: MORPHINE SULFATE INJ 4 MG/ML DISP.SYRIN IV PRN ×4 (02:48→11:12)
[2020-07-31] MEDS: PHENYLEPHRINE 50 MG in IV NS 0.9% 245 ML IV PRN ×3 (04:11→12:01)
[2020-07-31 04:13] LABS: BASOPHILS # (AUTO) 0.1 /CMM (0.0-0.2); BASOPHILS % (AUTO) 0.8 % (0.0-2.0); EOSINOPHILS % (AUTO) 0.1 % (0.0-6.0); HEMATOCRIT 29 % (39-51); HEMOGLOBIN 9.7 g/dL (13.5-17.5); LYMPHOCYTES # (AUTO) 0.4 /CMM (0.8-4.8); LYMPHOCYTES % (AUTO) 2.1 % (20.0-44.0); MEAN CORPUSCULAR HGB CONC 33 g/dl (31.0-36.0); MEAN CORPUSCULAR VOLUME 96 fL (80-96); MONOCYTES # (AUTO) 0.8 /CMM (0.1-1.30); MONOCYTES % (AUTO) 4.6 % (2.0-12.0); NEUTROPHILS # (AUTO) 15.8 /CMM (1.8-8.9); NEUTROPHILS % (AUTO) 92.4 % (43.0-81.0); PLATELET COUNT (AUTO) 323 /CMM (150-450); RED BLOOD CELL COUNT(AUTO) 3.05 MIL/uL (4.5-6.0); WHITE BLOOD COUNT (AUTO) 17.1 K/uL (4.3-11.0)
[2020-07-31 04:22] LABS: ALANINE AMINOTRANSFERASE 78 U/L (12-78); ALKALINE PHOSPHATASE 147 U/L (46-116); ASPARTATE AMINOTRANSFERASE 36 U/L (15-37); BILIRUBIN,TOTAL 2.4 mg/dL (0.2-1.0); CALCIUM, SERUM 7.8 mg/dL (8.5-10.1); CARBON DIOXIDE 24 mmol/L (21-32); CHLORIDE 102 mmol/L (98-107); CREATININE 2.2 mg/dL (0.6-1.3); GLUCOSE 170 mg/dL (74-106); MAGNESIUM 1.8 mg/dL (1.8-2.4); PHOSPHORUS 3.5 mg/dL (2.5-4.9); POTASSIUM 3.8 mmol/L (3.5-5.1); SODIUM SERUM 138 mmol/L (136-145); TOTAL PROTEIN, SERUM 4.8 g/dL (6.4-8.2); UREA NITROGEN, BLOOD 54 mg/dL (7-18)
[2020-07-31 04:32] LABS: ALBUMIN 1.2 g/dL (3.4-5.0)
[2020-07-31] MEDS: MEROPENEM 1 G in IV NS 0.9% 100 ML IV SCH (05:01)
--- NOTE | 2020-07-31 06:00 | NUR ---
notified Shah[place] magistrate judge about critical lab values: albumin- 1.2 lactic acid- 4.1 blood culture- gram + cocci in pairs (preliminary report) No new orders.
--- NOTE | 2020-07-31 06:57 | NUR ---
patient remains in critical condition due to blood pressure not being controlled with aman at max 3 mcg and had to add levo again. Patient's heart rate increased to 130's and is c/o pain. due to low blood pressure pain medication not given at this time. once blood pressure under control pain management can be initiated. Endorsed care to am RN for continuity of care.
--- NOTE | 2020-07-31 07:30 | NUR ---
RN OPENING NOTE: RECEIVED PATIENT IN BED THIS MORNING. PATIENT IS ALERT, OPENS EYES TO COMMAND AND NODS YES/NO TO QUESTIONS BEING ASKED. PATIENT IS SATING WELL ON CURRENT VENT SETTINGS. SINUS TACHY NOTED ON BEDSIDE MONITOR WITH HR IN THE 140S. GT RUNNING NEPRO @ 45 CC/HR. GABRIEL DRAINING URINE. WOUND CARE PER ORDERS. SHITAL PICC LINE, ELAINE MIDLINE, C/D/I,. FLUSHING WELL, NO SIGNS OF COMPLICATIONS NOTED. LEVO RUNNING AT 0.3MCG AND VEL RUNNING AT 3MCG. R FEMORAL HD CATH, C/D/I. SAFETY MEASURES IMPLEMENTED, BED IN LOWEST POSITION, LOCKED, SIDE RAILS UP, CALL LIGHT WITHIN REACH. WILL CONTINUE TO MONITOR PATIENT FOR CHANGES.
[2020-07-31 07:46] LABS: BILIRUBIN,DIRECT 2.5 mg/dL (0.0-0.2)
[2020-07-31] MEDS ORDERED: VASOPRESSIN INJ 20 UNIT in IV NS 0.9% 39 ML IV PRN (08:00)
[2020-07-31 08:24] LABS: D-DIMER 26.29 mg/L(FEU (0.17-0.50)
[2020-07-31] MEDS ORDERED: IV NS 0.9% 1,000 ML IV PRN (08:30)
[2020-07-31] MEDS ORDERED: VASOPRESSIN INJ 40 UNIT in IV NS 0.9% 38 ML IV PRN (08:30)
[2020-07-31] MEDS: PANTOPRAZOLE 40 MG VIAL IV SCH (08:33)
[2020-07-31] MEDS: FLUOXETINE HCL 20 MG CAPSULE PO SCH (08:34)
[2020-07-31] MEDS: GABAPENTIN 300 MG CAPSULE PO SCH (08:34)
--- NOTE | 2020-07-31 08:57 | NUR ---
CONTACTED DR HOGAN WITH CRITICAL LAB VALUES
[2020-07-31] MEDS ORDERED: IV NS 0.9% 500 ML IV ONE (09:00)
[2020-07-31] MEDS ORDERED: IV NS 0.9% 1,000 ML IV ONE (10:00)
--- NOTE | 2020-07-31 10:03 | NUR ---
INFORMED DR MON AND DR CONSTANTINO OF PATIENT'S BP AND HR. PATIENT IS CURRENTLY MAXED OUT ON VEL AND VASOPRESSIN, CAUTIOUSLY TITRATING LEVO D/T HR INCREASING DRAMATICALLY IN THE 150S. CURRENT BP 98/69 HR 130. WILL CONTINUE TO MONTOR PATIENT FOR CHANGES.
[2020-07-31 10:04] LABS: ABG OXYGEN SATURATION 55.9 % (92.0-98.5); ABG PCO2 28.4 mmHg (35.0-45.0); ABG PH 7.289 (7.350-7.450); ABG PO2 31.9 mmHg (75.0-100.0); AaDO2 220.6 mmHg; COHb 1.4 % (0.5-1.5); MetHb 0.6 % (0.0-1.5); O2Hb 54.8 % (94.0-97.0); SITE, ABG Other
[2020-07-31] MEDS: VANCOMYCIN 1 GM in IV D5W 250ml IV SCH (10:23)
[2020-07-31 10:36] LABS: ABG BASE EXCESS -9.9 mmol/L; ABG OXYGEN SATURATION 94.4 % (92.0-98.5); ABG PCO2 25.4 mmHg (35.0-45.0); ABG PH 7.363 (7.350-7.450); ABG PO2 79.5 mmHg (75.0-100.0); AaDO2 176.5 mmHg; COHb 1.1 % (0.5-1.5); MetHb 0.3 % (0.0-1.5); O2Hb 93.1 % (94.0-97.0); SITE, ABG Left Brachial; VENT MODE, BG AC 20 500 40% 0
--- NOTE | 2020-07-31 10:43 | NUR ---
PER DR MON, HOLD TF FOR NOW. ALSO AWARE OF THE DRAINAGE FROM SITE OF PARACENTESIS AND THAT PATIENT IS HAVING PAIN AT SITE OF ABDOMINAL INCISION.
--- NOTE | 2020-07-31 10:55 | NUR ---
SPOKE TO PATIENTS , DIDIER. UPDATED DIDIER ON PATIENTS CURRENT STATUS OF MAXED ON VEL, MAXED ON VASOPRESSIN, LEVOPHED IS BEING TITRATED UP BUT RAISING PATIENTS HEART RATE. BOLUS GIVEN PER MD ORDERS. PT AWAKE, ALERT, OX3. DIDIER ASKED RN TO ASK PATIENT IF HE WISHES TO REMAIN A FULL CODE OR BE MADE A DNR. 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 RN ASKED PT, PT INDICATED UNDERSTANDING AND MOUTHED THAT HE WANTS TO BE A DNR. TATE CHAIDEZ GAVE PERMISSION FOR PATIENTS AND ADULT CHILDREN TO COME SEE PT IN 20 MINUTE INTERVALS WITH MASKS AND 1 AT A TIME. PT'S IS [address] RUTH COLBERT NOTIFIED OF PATIENT AND DIDIER'S WISHES. AWAITING RESPONSE.
--- NOTE | 2020-07-31 12:30 | NUR ---
DR VALVERDE AWARE THAT LEVO IS BEING USED IN DISCRETION D/T PATIENT'S HR BECOMING TACHYCARDIC THE TITRATION OF THE PRESSOR GOES UP.
--- NOTE | 2020-07-31 15:50 | NUR ---
DR VALVERDE SPOKE WITH PATIENT'S REGARDING COMFORT CARE. PER , SHE WANTED PATIENT TO DECIDE FOR HIMSELF. PATIENT HAS AGREED WITH COMFORT CARE. WILL INFORM DOCTORS.
[2020-07-31] MEDS ORDERED: MORPHINE SULFATE PF DRIP 250 MG in IV D5W 240 ML IV PRN (16:00)
--- NOTE | 2020-07-31 16:14 | NUR ---
AWAITING MORPHINE DRIP FROM PHARMACY.
[2020-07-31] MEDS: LORAZEPAM INJ 2 MG/ML VIAL IV PRN ×2 (17:33→17:42)
--- NOTE | 2020-07-31 17:48 | NUR ---
ATIVAN IV GIVEN FOR COMFORT. DIFFICULT TO OBTAIN O2 SAT, UNABLE TO OBTAIN BP. PATIENT IS SINUS TACHY AT 136 ON BEDSIDE MONITOR AT THIS PRESENT TIME. WILL CONTINUE TO MONITOR PATIENT.
[2020-07-31] MEDS ORDERED: MEROPENEM 500 MG in IV NS 0.9% 50 ML IV SCH (18:00)
--- NOTE | 2020-07-31 18:31 | NUR ---
PATIENT ASYSTOLE ON MONITOR. TIME OF CALLED BY JAYRO CHARGE NURSE AT 18:27. Addendum: 07/31/20 at 1920 by CHAU LOPEZ RN PUPILS NON-REACTIVE TO LIGHT, PATIENT UN-RESPONSIVE, GAG-REFLEX ABSENT, NO PALPABLE PULSES.
--- NOTE | 2020-07-31 18:36 | NUR ---
CONTACTED [facility] MELISSA FOSTER, PATIENT IS NOT A CANDIDATE REF # [id number]
--- NOTE | 2020-07-31 19:00 | NUR ---
CONTACTED WOOD TYPE CUTTER C/O FARSHAD, PATIENT IS NOT A CORONERS CASE
--- NOTE | 2020-07-31 19:03 | NUR ---
DR MIRANDA, HELPER METAL HANGING AND ADMITTING ALL AWARE OF PATIENT'S
--- NOTE | 2020-07-31 19:15 | NUR ---
GAVE REPORT TO CHARGE NURSE TO CONTINUE POST MORTEM CARE. CHECK LIST COMPLETE.
[2020-08-01] MEDS ORDERED: VANCOMYCIN 500 MG in IV D5W 100 ML IV PRN (06:00)
== END 2020-07-31 18:27 | disposition expired | DRG 853 ==
LOC: ER 05:46 → TELE2 09:27 → ICU 17:47 → TELE-TD 07-24 17:14 → TELE1 07-25 07:31 → ICU 07-29 18:57
PROVIDERS: ADMIT Nurse Practitioner Acute Care
PROC: 05H633Z Insertion of Infusion Device into Left Subclavian Vein, Percutaneous Approach (ICD-10-PCS; 2020-07-15)
PROC: B547ZZA Ultrasonography of Left Subclavian Vein, Guidance (ICD-10-PCS; 2020-07-15)
PROC: 5A1955Z Respiratory Ventilation, Greater than 96 Consecutive Hours (ICD-10-PCS; 2020-07-15)
PROC: 0DN80ZZ Release Small Intestine, Open Approach (ICD-10-PCS; principal; 2020-07-16)
PROC: 0DT80ZZ Resection of Small Intestine, Open Approach (ICD-10-PCS; 2020-07-16)
PROC: 02HV33Z Insertion of Infusion Device into Superior Vena Cava, Percutaneous Approach (ICD-10-PCS; 2020-07-16)
PROC: B548ZZA Ultrasonography of Superior Vena Cava, Guidance (ICD-10-PCS; 2020-07-16)
PROC: 06HY33Z Insertion of Infusion Device into Lower Vein, Percutaneous Approach (ICD-10-PCS; 2020-07-17)
PROC: 5A1D70Z Performance of Urinary Filtration, Intermittent, Less than 6 Hours Per Day (ICD-10-PCS; 2020-07-17)
PROC: 30233N1 Transfusion of Nonautologous Red Blood Cells into Peripheral Vein, Percutaneous Approach (ICD-10-PCS; 2020-07-17)
PROC: 30233K1 Transfusion of Nonautologous Frozen Plasma into Peripheral Vein, Percutaneous Approach (ICD-10-PCS; 2020-07-17)
PROC: 30233M1 Transfusion of Nonautologous Plasma Cryoprecipitate into Peripheral Vein, Percutaneous Approach (ICD-10-PCS; 2020-07-23)
PROC: 0W9G3ZZ Drainage of Peritoneal Cavity, Percutaneous Approach (ICD-10-PCS; 2020-07-30)
DX: A41.9 Sepsis, unspecified organism (principal); E43 Unspecified severe protein-calorie malnutrition; K85.90 Acute pancreatitis without necrosis or infection, unspecified; N17.0 Acute kidney failure with tubular necrosis; J96.21 Acute and chronic respiratory failure with hypoxia; J69.0 Pneumonitis due to inhalation of food and vomit; D65 Disseminated intravascular coagulation [defibrination syndrome]; R65.21 Severe sepsis with septic shock; K72.00 Acute and subacute hepatic failure without coma; E87.1 Hypo-osmolality and hyponatremia; G61.0 Guillain-Barre syndrome; Z99.11 Dependence on respirator [ventilator] status; N13.6 Pyonephrosis; K56.52 Intestinal adhesions [bands] with complete obstruction; J98.11 Atelectasis; K56.7 Ileus, unspecified; Z51.5 Encounter for palliative care; Z93.1 Gastrostomy status; Z93.0 Tracheostomy status; Z95.1 Presence of aortocoronary bypass graft; D63.8 Anemia in other chronic diseases classified elsewhere; B96.1 Klebsiella pneumoniae [K. pneumoniae] as the cause of diseases classified elsewhere; E11.22 Type 2 diabetes mellitus with diabetic chronic kidney disease; E86.0 Dehydration; I25.10 Atherosclerotic heart disease of native coronary artery without angina pectoris; J44.9 Chronic obstructive pulmonary disease, unspecified; N18.9 Chronic kidney disease, unspecified; Z86.718 Personal history of other venous thrombosis and embolism; Z95.5 Presence of coronary angioplasty implant and graft; Z66 Do not resuscitate; G47.00 Insomnia, unspecified; E86.1 Hypovolemia; E87.5 Hyperkalemia; I12.9 Hypertensive chronic kidney disease with stage 1 through stage 4 chronic kidney disease, or unspecified chronic kidney disease; Z74.01 Bed confinement status
CPT/HCPCS: 31720; 36410; 36415; 36569; 36600; 71045-TC; 74018; 74250-TC; 76700-TC; 76942-TC; 80048-TC; 80053-TC; 80061-TC; 80076-TC; 80202-TC; 81001; 82140-TC; 82247-TC; 82248-TC; 82272-TC; 82533; 82550-TC; 82553; 82728-TC; 82784; 82803-TC; 82962-TC; 83010; 83540-TC; 83605-TC; 83615-TC; 83690-TC; 83735-TC; 84100-TC; 84155; 84165; 84439-TC; 84443-TC; 84478-TC; 84484-TC; 85025-TC; 85027-TC; 85045-TC; 85385-TC; 85396; 85610-TC; 85730-TC; 86140-TC; 86225; 86235; 86431-TC; 86850-TC; 86880-TC; 87040-TC; 87070-TC; 87081-TC; 87086-TC; 87186-TC; 88108-TC; 88305-TC; 88307-TC; 88312-TC; 90935-TC; 93307-TC; 93971-TC; 94002-TC; 94003-TC; 94640-TC; 94760-TC; 94799-TC; 99082-TC; A4216; A4217; A4349; A4623; A6209; A6253; A6403; A9563; C1751; C9113; C9803; G0378; J0690; J0692; J1100; J1170; J1200; J1450; J1650; J1720; J1815; J1940; J2060; J2185; J2250; J2270; J2274; J2370; J2405; J2543; J2704; J2765; J3010; J3370; J3430; J3475; J3480; J3490; J7030; J7040; J7042; J7050; J7060; J7070; P9012; P9016-BL; P9017-BL; P9047; Q9963; U0003